=== PATIENT | male | born 1940 | race Caucasian/White ===

== ENCOUNTER 2022-09-11 09:02 | Outpatient (CLI) | payer MEDICARE, SELFPAY ==
[2022-09-11 14:16] LABS: SARS PCR* Negative SARS-CoV-2 (Negative)
== END 2022-09-11 09:03 | disposition home or self-care (01) ==
LOC: FBOREF 09:03
PROVIDERS: PCP Family Medicine; Visit Provider Orthopaedic Surgery
DX: Z20.822 Contact with and (suspected) exposure to COVID-19 (principal); Z01.818 Encounter for other preprocedural examination
CPT/HCPCS: 87635

== ENCOUNTER 2022-09-12 07:07 | Day surgery (SDC) | payer MEDICARE, SELFPAY ==
--- NOTE | 2022-08-29 09:50 | PC.NURSE ---
08/29/22. Spoke briefly with pt's , Sharon. Pt's H&P is today with Dr Hills at [facility]. His Covid test is on 09/11 at 9:00 AM -she believes at [facility]-she will confirm. States all of his PT is scheduled. States the discharge plan is to have him discharged to their home. She states they have friends who can help if needed.
[2022-09-12] VITALS (28 sets, daily range): BP systolic 75–148; BP diastolic 48–109; PULSE 53–102; RESP 12–18; TEMP 35.8–37.1; O2SAT 90–100; BMI 29.9
[2022-09-12] MEDS: CELECOXIB 200 MG CAPSULE PO (07:43)
[2022-09-12] MEDS: ACETAMINOPHEN 500 MG TABLET 1000 MG PO ×3 (07:43→21:59)
[2022-09-12] MEDS: OXYCODONE (CR) 10 MG TAB.ER.12H PO (07:43)
[2022-09-12] MEDS: SODIUM CHLORIDE 0.9 % (FLUSH) 10 ML SYRINGE IVF (07:58)
[2022-09-12] MEDS: LACTATED RINGERS 1000 ML 1,000 ML 100 ML IV (07:59)
--- NOTE | 2022-09-12 08:19 | SUR.PREOP ---
TIME?OUT:?08 PT/RN/MDA?VERIFICATION?OF?SURGICAL?SITE,?PROCEDURE,?AND?CONSENT OBTAINED?PRIOR?TO?INVASIVE?PROCEDURE.
[2022-09-12] MEDS: fentaNYL 100 MCG/2 ML inj IVP (08:25)
[2022-09-12] MEDS: MIDAZOLAM HCL 1 MG/ML inj IVP (08:25)
[2022-09-12] MEDS: CEFAZOLIN 2 GM INJ IVP (08:45)
--- NOTE | 2022-09-12 09:37 | W.PM.NB ---
Nerve Block Nerve Block Time Seen by Provider: 08:30 Date Seen: 09/12/22 Type of block requested by surgeon for post-operative analgesia: adductor canal Side: left Time out performed: Yes Verification of patient name: Yes Verification of date of : Yes Site marking: site marked Name of person performing procedure: Tarik Fink Continuous monitoring Was continuous monitoring of O2 sat, B/P, monitor and storage bin tender, recorded every 15 minutes?: Yes Procedure Checklist: sterile prep, needles and gloves Ultrasound guided. Images saved: Yes Medications given in 5ml increments after negative aspiration: Ropivicaine %: 0.5 mL: 20 Needle gauge: 20 Decadron (mg): 10 Precedex (mcg): 25 Patient tolerated procedure well: Yes Additional comments: injected in 5ml increments after negative aspiration Block Charges Block Charge (with Pro Fee): Femoral Nerve Use of Ultrasound Machine for Block: Yes- US Guidance/pain block
--- NOTE | 2022-09-12 09:38 | P.NB_ITS ---
Nerve Block Nerve Block Time Seen by Provider: 08:30 Date Seen: 09/12/22 Type of block requested by surgeon for post-operative analgesia: geniculars Side: left Time out performed: Yes Verification of patient name: Yes Verification of date of : Yes Site marking: site marked Name of person performing procedure: Tarik Fink Continuous monitoring Was continuous monitoring of O2 sat, B/P, director pharmacy services, recorded every 15 minutes?: Yes Procedure Checklist: sterile prep, needles and gloves Ultrasound guided. Images saved: No Medications given in 5ml increments after negative aspiration: Ropivicaine %: 0.5 mL: 12 Needle gauge: 25 Patient tolerated procedure well: Yes Additional comments: Injected in 4ml increments after negative aspiration Block Charges Block Charge (with Pro Fee): Genicular Nerve Block Use of Ultrasound Machine for Block: No
--- NOTE | 2022-09-12 09:53 | CRLHL7_ITS ---
For Patients: As a result of the Cures Act, medical imaging exams and procedure reports are released immediately into your electronic medical record. You may view this report before your referring provider. If you have questions, please contact your health care provider. Indication: POSTOP TKA Technique: Two views left knee Findings/Impression: Hardware from a left total knee arthroplasty is in satisfactory position. Bone alignment is normal. No sign of acute fracture. Postop changes are within normal limits. Dictated by Harjeet Walter MD @ 09/12/2022 11:16:21 AM (Electronically Signed)
--- NOTE | 2022-09-12 09:56 | PM.ORPRC ---
Procedure Note Date of procedure: 09/12/22 Procedure: PREOPERATIVE DIAGNOSIS: Left knee osteoarthritis POSTOPERATIVE DIAGNOSIS: Left knee osteoarthritis NAME OF OPERATION: Left total knee arthroplasty SURGEON: Harinder Manuel MD FABRICATION SPECIALIST: Olga Griggs PA-C ANESTHESIA: Spinal ESTIMATED BLOOD LOSS: 0 mL COMPLICATIONS: None SPECIMENS: None DRAINS: None PREOPERATIVE ANTIBIOTICS: Ancef 2 grams IMPLANTS: 1. J&J Attune #6 posterior stabilized femur 2. #6 fixed-bearing tibia 3. #6 posterior stabilized, 8 mm fixed-bearing polyethylene 4. 41 patella INDICATIONS: The patient is a 82-year-old with a longstanding history of severe, unrelenting left knee pain secondary to end-stage (grade IV) left knee osteoarthritis. Despite appropriate nonoperative management, including activity modification, anti-inflammatories, [id number] pain medication, bracing, physical therapy, and injections they continue to have pain and disability. Operative intervention was offered. The risks, benefits and expected outcomes were discussed in detail. These included but were not limited to: Infection, bleeding, injury to blood vessel or nerve, venous thromboembolism. All questions were answered to their satisfaction. Use of an retail assistant store manager was necessary throughout the case for patient positioning and safety, soft tissue retraction, and closure. PROCEDURE: Spinal anesthesia was administered. The patient was placed supine on the operating table. The retail assistant store manager made sure the patient was positioned appropriately. The lower extremity was prepped and draped in the usual sterile fashion. The limb was exsanguinated with the Kaveh bandage. The pneumatic tourniquet was inflated to 300 mmHg. A standard anterior incision was made with the knee in flexion. Subcutaneous dissection was sharply taken through fascial layer #1. Full-thickness medial and lateral flaps were elevated. The retail assistant store manager retracted the soft tissues and protected them throughout the case. A standard medial parapatellar approach was made. The patella was everted. The infrapatellar fat pad was preserved. The menisci and cruciate ligaments were sharply d?brided. Marginal osteophytes were d?brided with the rongeur. The drill was used to penetrate the femoral canal. The canal was aspirated and irrigated with pulse lavage. The intramedullary femoral guide was placed for a 5-degree valgus cut, removing 10 mm off the distal femur. The saw was used to make the cut. Whitesides line and the trans epicondylar axis were marked. The femoral sizing guide was pinned onto the distal femur. Three degrees of external rotation nicely parallels the transepicondylar axis. Pins were placed for posterior referencing. The four-in-one cutting guide was pinned onto the distal femur. The anterior, posterior, and chamfer cuts were made. The retail assistant store manager protected the collateral ligaments. The box cutting guide was pinned. The box cuts were made. The boxed trial was placed and was an excellent fit. Drill holes for the lugs were made. Attention was then turned to the proximal tibia. The extramedullary tibial guide was placed for a neutral varus/valgus cut with 5 degrees of posterior slope, removing 1 mm based off the medial tibial surface. The retail assistant store manager protected the collateral ligaments and the neurovascular bundle. The saw was used to make the cut. Trial components were placed. The knee was nicely balanced in both flexion and extension. The trial components were removed. The tray was placed in appropriate rotation, parallel to our tibial cutting pins. It was pinned by the retail assistant store manager and the drill and the punch were used. The tray was removed. The punch was used again. We placed a bone plug in the femoral canal. Attention was then turned to the patella. Morongo patellar thickness was 23 mm. The lobster claw resection guide was used with the 9.5 mm luanne. The saw was used to make the cut. Drill holes were made by the retail assistant store manager. The trial was placed and was an excellent fit. Cancellous surfaces were irrigated with pulse lavage and thoroughly dried by the retail assistant store manager. We cemented the tibial component, then the femoral component. We impacted the 8 mm polyethylene onto the tibial tray. The knee was brought into full extension. We then cemented the patellar component. Excessive cement was removed. The cement was allowed to harden. The knee was taken through a range of motion and was found to be nicely balanced in both flexion and extension. The patella tracks centrally. The retail assistant store manager did a three minute dilute Betadine solution soak. The retail assistant store manager irrigated the wound with 3 liters of normal saline via pulse lavage. The retail assistant store manager reapproximated the extensor mechanism with #1 Vicryl in an interrupted [id number] fashion. The retail assistant store manager then ran the extensor mechanism with a #1 PDO Stratafix. The retail assistant store manager closed the subcutaneous tissues with a 3-0 Stratafix and the skin with a running 3-0 Stratafix in a subcuticular fashion. Glue was used to seal the skin. The retail assistant store manager placed a dry dressing, SAMANTA stocking, and Polar Care. Sponge and needle counts were correct x2. The patient tolerated the procedure well. There were no apparent complications. They were carefully transferred to the hospital bed and taken to the postanesthesia care unit in satisfactory condition. PLAN: The patient will be mobilized with physical therapy. Aspirin will be used for DVT prophylaxis. They will be discharged to home once medically appropriate.
--- NOTE | 2022-09-12 10:47 | W.ANESCHARGE ---
Anesthesia Charges Start Date/Time Anesthesia Start Date: 09/12/22 Anesthesia Start Time: 08:36 Stop Date/Time Anesthesia Stop Date: 09/12/22 Anesthesia Stop Time: 10:45
--- NOTE | 2022-09-12 11:32 | SUR.PHASEI ---
patient met discharge criteria per anesthesia
[2022-09-12] MEDS: LACTATED RINGERS 1000 ML 1,000 ML 75 ML IV (12:29)
[2022-09-12] MEDS: CEFAZOLIN 2 GM in 0.9 % SODIUM CHLORIDE Mini-bag 100 ML IVPB ×2 (14:49→22:01)
[2022-09-12] MEDS: OXYCODONE 5 MG TABLET PO ×4 (14:49→21:59)
--- NOTE | 2022-09-12 18:22 | P.IMCN_ITS ---
Date of Consult Patient: Yancy Patient Consult date: 09/12/22 Requesting Physician: Orthopedics Primary Care Provider: Aftab Hills MD Consult Narrative Reason for consult: afib, DM2, HTN Narrative: Barber Duarte is a 82 year old male with a history of hypertension, diabetes mellitus type 2, and recently discovered atrial fibrillation who underwent elective left total knee arthroplasty today for severe osteoarthritis. Postoperatively he is doing well. He is having little bit of pain in his knee, but appears comfortable. Review of Systems Status of ROS: Reports: 6 or more systems reviewed and unremarkable except as noted in History and below [facility] Medical History (Updated 09/12/22 @ 19:07 by Jasmin Padron MD) Atrial fibrillation (07/20/22) B12 deficiency BPH (benign prostatic hyperplasia) GERD (gastroesophageal reflux disease) H/O echocardiogram Hyperlipidemia Hypertension Hypokalemia Normocytic anemia Obesity Right wrist pain Type 2 diabetes mellitus Surgical History (Updated 09/12/22 @ 18:57 by Jasmin Padron MD) H/O hemorrhoidectomy (~1979) History of appendectomy (~1951) History of back surgery (~1958) History of hernia repair (~1979) History of tonsillectomy and adenoidectomy (~1951) S/P cholecystectomy S/P total knee arthroplasty (09/12/22) Family History (Updated 09/12/22 @ 18:39 by Jasmin Padron MD) Sister Breast cancer Polio Mother Osteoarthritis Bleeding ulcer Father Parkinson disease Social History (Updated 09/12/22 @ 18:41 by Jasmin Padron MD) Narrative: 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 The 1st in 2011, he is rem arried and lives independently with her. He smoked less than a pack of cigarettes per day for 10 years and quit in his 30s. He drinks 1 bottle of beer per night, never really any more than that. Denies recreational drugs. Wishes to be DNR. Smoking Status: Former smoker What tobacco products do you use: cigarettes Smoking quit date/years: >15 years ago Do you use any of these nicotine containing products: None Second hand tobacco smoke exposure: No How often do you have a drink containing alcohol: 4 or more times a week Alcohol type: beer How many standard drinks containing alcohol do you have on a typical day: 1 or 2 How often do you have six or more drinks on one occasion: Never AUDIT-C Alcohol total score: 4 Non-prescribed substance use: denies use Caffeine: Yes (coffee, 2 cups/day) service: Yes Meds Home Medications and Allergies Home Medications Medication Instructions Recorded Confirmed Type ascorbic acid (vitamin C) 1,000 mg 1 g PO DAILY 02/22/22 09/12/22 History tablet atorvastatin 40 mg tablet 40 mg PO HS 02/22/22 09/12/22 History cholecalciferol (vitamin D3) 25 1,000 unit PO HS 02/22/22 09/12/22 History mcg (1,000 unit) tablet multivitamin 1 tab PO QAM 02/22/22 09/12/22 History omega 2-rea-blu-fish oil 100 1 cap PO DAILY 02/22/22 09/12/22 History mg-160 mg-1,000 mg capsule (Fish Oil) omeprazole 20 mg capsule,delayed 20 mg PO DAILY 02/22/22 09/12/22 History release amlodipine 5 mg tablet 5 mg PO DAILY 09/12/22 09/12/22 History cyanocobalamin (vitamin B-12) 1,000 mcg PO DAILY 09/12/22 09/12/22 History 1,000 mcg tablet hydrochlorothiazide 25 mg tablet 25 mg PO DAILY 09/12/22 09/12/22 History metformin 1,000 mg tablet 1,000 mg PO BIDWM 09/12/22 09/12/22 History metoprolol tartrate 25 mg tablet 25 mg PO BID 09/12/22 09/12/22 History oxycodone 5 mg tablet 5 mg PO BID PRN 09/12/22 09/12/22 History potassium chloride 10 mEq 10 meq PO DAILY 09/12/22 09/12/22 History tablet,extended release rivaroxaban 20 mg tablet (Xarelto) 20 mg PO QPM 09/12/22 09/12/22 History tamsulosin 0.4 mg capsule 0.8 mg PO DAILY 09/12/22 09/12/22 History Allergies Allergy/AdvReac Type Severity Reaction Status Date / Time lisinopril Allergy Verified 09/12/22 07:33 Exam Narrative: Exam Narrative: General: No acute distress. Awake alert oriented x3. HEENT: Normocephalic atraumatic, pupils equally round and reactive to light and accommodation. Oropharynx clear. Mucous membranes are moist. No cervical lymphadenopathy, thyromegaly or carotid bruits. No JVD. Cardiovascular: Irregularly irregular. No murmurs, gallops, or rubs. Chest: No increased work of breathing. Clear to auscultation bilaterally. No crackles or wheezes. Abdomen: Bowel sounds present. Soft, nondistended, nontender. No hepatosplenomegaly or masses. Extremities: Left knee bandage is clean, dry, and intact. No edema, no cyanosis or clubbing. Skin: No jaundice, no pallor, no rashes. Const: Vital Signs, click to edit/add: Vital Signs - 24 hr 09/12/22 07:46 09/12/22 08:25 09/12/22 08:30 Temperature 98.0 F Pulse Rate 64 64 62 Pulse Rate [Right Pulse Oximeter] Respiratory Rate 16 16 16 Blood Pressure 118/91 H 143/87 H 138/86 Blood Pressure [Le ft Arm] Pulse Oximetry 96 96 96 Oxygen Delivery Me thod Room Air Nasal Cannula Nasal Cannula Oxygen Flow Rate 2 2 09/12/22 10:42 09/12/22 11:20 09/12/22 10:45 Temperature 98.5 F 98.5 F 98.5 F Pulse Rate 56 L 64 55 L Pulse Rate [Right Pulse Oximeter] Respiratory Rate 12 15 12 Blood Pressure 85/48 L 108/63 75/57 L Blood Pressure [Le ft Arm] Pulse Oximetry 100 96 100 Oxygen Delivery Me thod OxyMask Room Air OxyMask Oxygen Flow Rate 6 6 09/12/22 10:50 09/12/22 10:55 09/12/22 11:00 Temperature 98.5 F 98.5 F 98.5 F Pulse Rate 63 54 L 54 L Pulse Rate [Right Pulse Oximeter] Respiratory Rate 13 14 14 Blood Pressure 87/58 L 96/55 L 97/52 L Blood Pressure [Le ft Arm] Pulse Oximetry 100 100 100 Oxygen Delivery Me thod OxyMask OxyMask OxyMask Oxygen Flow Rate 6 6 6 09/12/22 11:05 09/12/22 11:10 09/12/22 11:15 Temperature 98.5 F 98.5 F 98.5 F Pulse Rate 54 L 53 L 62 Pulse Rate [Right Pulse Oximeter] Respiratory Rate 14 16 15 Blood Pressure 97/52 L 101/57 L 108/60 Blood Pressure [Le ft Arm] Pulse Oximetry 100 100 96 Oxygen Delivery Me thod OxyMask OxyMask Room Air Oxygen Flow Rate 6 6 09/12/22 11:31 09/12/22 15:00 09/12/22 15:00 Temperature 96.6 F L Pulse Rate 58 L Pulse Rate [Right Pulse Oximeter] 98 Respiratory Rate 16 Blood Pressure Blood Pressure [Le ft Arm] 119/67 Pulse Oximetry 98 Oxygen Delivery Me thod Room Air Oxygen Flow Rate Documenting provider has reviewed patient's vital signs: yes Labs Labs: Ordering Physician: Harinder Manuel M.D. Date of Service: 09/12/22 Procedure(s): XR knee LT 2V Accession Number(s): [id number] cc: Aftab Hills M.D.; Harinder Manuel M.D.~ For Patients: As a result of the Cures Act, medical imaging exams and procedure reports are released immediately into your electronic medical record. You may view this report before your referring provider. If you have questions, please contact your health care provider. Indication: POSTOP TKA Technique: Two views left knee Findings/Impression: Hardware from a left total knee arthroplasty is in satisfactory position. Bone alignment is normal. No sign of acute fracture. Postop changes are within normal limits. Dictated by Harjeet Walter MD @ 09/12/2022 11:16:21 AM (Electronically Signed) Assessment and Plan Assessment and plan (1) S/P total knee arthroplasty: Problem comment: Left, Dr. Manuel Doing well. Routine cares. For VTE prophylaxis he will resume Xarelto tomorrow; he has this also for atrial fibrillation Status: Acute (2) Atrial fibrillation: Problem comment: Echo essentially normal as below. Takes metoprolol for rate control and rivaroxaban for anticoagulation. Rivaroxaban was held September 09. Resume tomorrow. Mildly tachycardic at 104 resting in chair this evening. Give evening dose of metoprolol now. Monitor telemetry. Status: Chronic (3) Normocytic anemia: Problem comment: Chronic 08/29/2022 hemoglobin 11.2 Status: Chronic (4) Type 2 diabetes mellitus: Problem comment: 08/02/22 hemoglobin A1c 5.9 %. Resume metformin. Will add an ISS with meals and at bedtime. Status: Acute (5) Hypertension: Problem comment: Continue metoprolol, hold amlodipine and hydrochlorothiazide for now. Status: Chronic (6) Hyperlipidemia: Problem comment: Continue atorvastatin Status: Chronic
[2022-09-12] MEDS: METOPROLOL TARTRATE 25 MG TABLET PO (19:51)
[2022-09-12] MEDS: ATORVASTATIN CALCIUM 40 MG TABLET PO (20:12)
[2022-09-12] MEDS: ASPIRIN 81 MG TABLET EC PO (20:12)
[2022-09-12] MEDS: SENNOSIDES 1 TAB TABLET 2 TAB PO (20:12)
[2022-09-13] MEDS: LACTATED RINGERS 1000 ML 1,000 ML 75 ML IV (02:56)
[2022-09-13 03:00] VITALS: BP 125/78; PULSE 70; RESP 16; TEMP 36.6; O2SAT 94
[2022-09-13] MEDS: ACETAMINOPHEN 500 MG TABLET 1000 MG PO ×2 (04:49→09:40)
[2022-09-13 06:38] LABS: Basophils Absolute Auto 0.01 K/uL (0.00-0.30); Basophils Percent Auto 0.1 % (0.0-3.0); Hematocrit 25.6 % (37.0-53.0); Hemoglobin* 8.8 gm/dL (13.5-17.5); Immature Granulocytes Abs Auto 0.02 K/uL (0.00-0.30); Immature Granulocytes Pct Auto 0.2 %; Lymphocytes Percent Auto 7.5 % (20-44); Mean Corpuscular HGB Conc 34 gm/dL (32-36); Mean Corpuscular Hemoglobin 34 pg (26-34); Mean Corpuscular Volume 99 fL (80-100); Monocytes Percent Auto 7.5 % (0.0-11.0); Neutrophils Percent Auto 84.7 % (42.0-72.0); Platelet Count* 298 K/uL (140-440); White Blood Count* 9.97 K/uL (4.50-11.00)
[2022-09-13 06:40] LABS: Slide Review Reflex No
[2022-09-13] MEDS: CEFAZOLIN 2 GM in 0.9 % SODIUM CHLORIDE Mini-bag 100 ML IVPB (06:53)
[2022-09-13 06:56] LABS: Potassium* 4.1 mmol/L (3.6-5.1); Sodium* 134 mmol/L (135-149)
[2022-09-13 06:59] LABS: Creatinine* 0.8 mg/dL (0.5-1.5); Est. Creatinine Clearance* 49.62; Estimated Glomerular Filt Rate 87 ml/min
[2022-09-13 07:00] VITALS: PULSE 63
[2022-09-13 07:00] LABS: Blood Urea Nitrogen* 23 mg/dL (7-30)
[2022-09-13 07:14] LABS: INR 1.32 (0.91-1.10); Prothrombin Time 17.2 Seconds
--- NOTE | 2022-09-13 07:18 | PC.NURSE ---
VSS on RA. Patient is alert and oriented x3, uses urinal at bedside. IV antibiotic infusing, IV fluid saline lock. Scheduled Tylenol for pain management. Patient appears stable, call light with in reach
[2022-09-13 07:30] VITALS: BP 119/69; PULSE 84; RESP 18; TEMP 36.8; O2SAT 96
[2022-09-13] MEDS: ASCORBIC ACID 500 MG TABLET 1000 MG PO (08:42)
[2022-09-13] MEDS: METFORMIN 1,000 MG TABLET 1000 MG PO (08:43)
[2022-09-13] MEDS: TAMSULOSIN HCL 0.4 MG CAPSULE 0.8 MG PO (08:44)
[2022-09-13] MEDS: CYANOCOBALAMIN (VITAMIN B-12) 500 MCG TABLET 1000 MCG PO (08:44)
[2022-09-13] MEDS: MULTIVITAMIN/MINERALS 1 TABLET 1 TAB PO (08:44)
[2022-09-13] MEDS: METOPROLOL TARTRATE 25 MG TABLET PO (08:45)
[2022-09-13] MEDS: OMEPRAZOLE 20 MG CAPSULE DR PO (08:45)
[2022-09-13] MEDS: SENNOSIDES 1 TAB TABLET 2 TAB PO (08:45)
[2022-09-13] MEDS: POTASSIUM CHLORIDE 10 MEQ CAPSULE ER PO (08:45)
[2022-09-13 09:35] VITALS: BP 108/63; PULSE 63; RESP 18; TEMP 36.8
--- NOTE | 2022-09-13 10:44 | PM.ORPN ---
Subjective Subjective Time Seen by Provider: 07:30 Date Seen: 09/13/22 Principal diagnosis: Status post left knee replacement Interval history: Barber is doing well this morning. He is comfortable. He denies dizziness or shortness of breath. He is planning to discharge to home today. Ortho Exam Narrative Exam Narrative: Alert and oriented x3. Patient is in no acute distress. Converses without labored breathing. Hearing is grossly intact. Ambulates with a walker. Examination of the left knee shows the dressing is in place. There is mild soft tissue edema. Mild effusion. Quad strength is good. Bilateral calves are soft and nontender. CMS intact left lower extremity. Const Vital Signs, click to edit/add: Vital Signs - 24 hr 09/12/22 11:20 09/12/22 10:45 09/12/22 10:50 Temperature 98.5 F 98.5 F 98.5 F Pulse Rate 64 55 L 63 Pulse Rate [Right Pulse Oximeter] Respiratory Rate 15 12 13 Blood Pressure 108/63 75/57 L 87/58 L Blood Pressure [Left Arm] Pulse Oximetry 96 100 100 Oxygen Delivery Method Room Air OxyMask OxyMask Oxygen Flow Rate 6 6 09/12/22 10:55 09/12/22 11:00 09/12/22 11:05 Temperature 98.5 F 98.5 F 98.5 F Pulse Rate 54 L 54 L 54 L Pulse Rate [Right Pulse Oximeter] Respiratory Rate 14 14 14 Blood Pressure 96/55 L 97/52 L 97/52 L Blood Pressure [Left Arm] Pulse Oximetry 100 100 100 Oxygen Delivery Method OxyMask OxyMask OxyMask Oxygen Flow Rate 6 6 6 09/12/22 11:10 09/12/22 11:15 09/12/22 11:31 Temperature 98.5 F 98.5 F 96.6 F L Pulse Rate 53 L 62 58 L Pulse Rate [Right Pulse Oximeter] Respiratory Rate 16 15 16 Blood Pressure 101/57 L 108/60 Blood Pressure [Left Arm] 119/67 Pulse Oximetry 100 96 Oxygen Delivery Method OxyMask Room Air Room Air Oxygen Flow Rate 6 09/12/22 15:00 09/12/22 15:00 09/12/22 11:45 Temperature 96.6 F L Pulse Rate Pulse Rate [Right Pulse Oximeter] 98 62 Respiratory Rate 16 Blood Pressure Blood Pressure [Left Arm] 127/109 H Pulse Oximetry 98 92 Oxygen Delivery Method Room Air Oxygen Flow Rate 09/12/22 12:00 09/12/22 12:15 09/12/22 12:30 Temperature 96.5 F L 96.8 F L 96.9 F L Pulse Rate Pulse Rate [Right Pulse Oximeter] 60 67 56 L Respiratory Rate 16 16 16 Blood Pressure Blood Pressure [Left Arm] 133/68 123/67 113/58 L Pulse Oximetry 92 95 93 Oxygen Delivery Method Room Air Room Air Room Air Oxygen Flow Rate 09/12/22 12:45 09/12/22 13:15 09/12/22 19:18 Temperature 96.9 F L 96.7 F L 98.7 F Pulse Rate Pulse Rate [Right Pulse Oximeter] 54 L 56 L 101 H Respiratory Rate 16 16 16 Blood Pressure Blood Pressure [Left Arm] 106/76 123/64 128/83 Pulse Oximetry 95 96 93 Oxygen Delivery Method Room Air Room Air Room Air Oxygen Flow Rate 09/12/22 14:00 09/12/22 15:00 09/12/22 16:00 Temperature 96.6 F L 96.6 F L 96.7 F L Pulse Rate Pulse Rate [Right Pulse Oximeter] 72 98 95 Respiratory Rate 16 16 16 Blood Pressure Blood Pressure [Left Arm] 124/75 146/86 H 145/93 H Pulse Oximetry 97 96 95 Oxygen Delivery Method Room Air Room Air Room Air Oxygen Flow Rate 09/12/22 17:00 09/12/22 21:07 09/12/22 21:59 Temperature 97.9 F 98.7 F Pulse Rate 94 Pulse Rate [Right Pulse Oximeter] 102 H Respiratory Rate 16 Blood Pressure Blood Pressure [Left Arm] 148/88 H Pulse Oximetry 98 Oxygen Delivery Method Room Air Oxygen Flow Rate 09/12/22 22:41 09/12/22 23:00 09/12/22 23:00 Temperature 98.7 F Pulse Rate Pulse Rate [Right Pulse Oximeter] 101 H Respiratory Rate 16 Blood Pressure Blood Pressure [Left Arm] Pulse Oximetry 95 Oxygen Delivery Method Oxygen Flow Rate 09/12/22 23:00 09/13/22 03:00 09/13/22 07:30 Temperature 98.2 F 97.8 F Pulse Rate Pulse Rate [Right Pulse Oximeter] 82 70 Respiratory Rate 18 16 Blood Pressure Blood Pressure [Left Arm] 142/78 H 125/78 Pulse Oximetry 95 94 96 Oxygen Delivery Method Room Air Room Air Oxygen Flow Rate 09/13/22 07:30 09/13/22 07:00 09/13/22 09:35 Temperature 98.3 F 98.3 F Pulse Rate 63 63 Pulse Rate [Right Pulse Oximeter] 84 Respiratory Rate 18 18 Blood Pressure 108/63 Blood Pressure [Left Arm] 119/69 Pulse Oximetry 96 Oxygen Delivery Method Room Air Oxygen Flow Rate Assessment and Plan Assessment and plan (1) S/P total knee arthroplasty: Problem details: 09/12/2022, left Status: Acute Assessment and Plan: Plan for discharge is today to home if they meet discharge criteria. DVT prophylaxis includes his normal dose of Xarelto 20 mg daily, Francisco stockings x1 month may remove for 1 hr per day, frequent ambulation Remove dressing in 1 week. Observe wound and phone Orthopedics with any questions or concerns Return to clinic in 1 week for a wound check Return to clinic in [address] Manuel Minimize narcotic use. Wean off and discontinue soon as possible. Activities as tolerated. No strenuous activity. Outpatient physical therapy as scheduled. Ice and elevate the operative extremity. No restriction on ice. Barber states he takes oxycodone rarely. It is on his med list. He takes it at night before bed only when he is having discomfort. Hemoglobin 8.8, asymptomatic currently. (2) Atrial fibrillation: Problem details: Echo essentially normal as below. Takes metoprolol for rate control and rivaroxaban for anticoagulation. Rivaroxaban was held September 09. Resume tomorrow. Mildly tachycardic at 104 resting in chair this evening. Give evening dose of metoprolol now. Monitor telemetry. Status: Chronic (3) Type 2 diabetes mellitus: Problem details: 08/02/22 hemoglobin A1c 5.9 %. Resume metformin. Will add an ISS with meals and at bedtime. Status: Acute (4) Hypertension: Problem details: Continue metoprolol, hold amlodipine and hydrochlorothiazide for now. Status: Chronic (5) Hyperlipidemia: Problem details: Continue atorvastatin Status: Chronic
[2022-09-13 10:45] VITALS: BP 113/80
--- NOTE | 2022-09-13 11:32 | PC.NURSE ---
Pt alert oriented, forgetful, reportedly per pt's baseline. Pt's vitals stable, on RA. Pt denies pain, voiding without difficulty, tolerating diet and ambulation. Worked w/ PT/OT, cleared for d/c by hospitalist. Discharge instructions gone over with pt and pt's , questions answered and paperwork sent with pt. IV removed intact without complications. Pt sent with all belongings and escorted out in WC to friend 'Carlyle' providing transportation home.
== END 2022-09-13 11:20 | disposition home or self-care (01) ==
LOC: OR 07:07 → MEDSURG 10:02
PROVIDERS: PCP Family Medicine; Visit Provider Orthopaedic Surgery
PROC: (CPT 27447; principal; 2022-09-12 08:45)
DX: M17.12 Unilateral primary osteoarthritis, left knee (principal); I48.91 Unspecified atrial fibrillation; E11.9 Type 2 diabetes mellitus without complications; I10 Essential (primary) hypertension; D64.9 Anemia, unspecified; E78.5 Hyperlipidemia, unspecified; K21.9 Gastro-esophageal reflux disease without esophagitis; E66.9 Obesity, unspecified; Z79.01 Long term (current) use of anticoagulants
CPT/HCPCS: 27447; 01402; 36415; 73560; 76942; 82565; 82962; 84132; 84295; 84520; 85025; 85610; 97110; 97116; 97161; 97165; 97535; A9153; A9270; C1776; J0690; J1100; J2250; J2704; J2795; J3010; J7120

== ENCOUNTER 2024-06-17 13:34 | Outpatient (CLI) | payer MEDICARE, SELFPAY | END 2024-06-17 13:35 | disposition home or self-care (01) | LOC: AMB 07-03 03:46 | PROVIDERS: PCP Family Medicine; Visit Provider Family Medicine | DX: R41.0 Disorientation, unspecified (principal); R53.1 Weakness | CPT/HCPCS: A0425; A0427 ==

== ENCOUNTER 2024-06-17 17:30 | Emergency (ER) | payer MEDICARE, SELFPAY ==
[2024-06-17] VITALS (14 sets, daily range): BP systolic 148–149; BP diastolic 77–83; PULSE 61–94; RESP 16; TEMP 36.6; O2SAT 91–98; BMI 29.1
--- NOTE | 2024-06-17 18:16 | CRLHL7_ITS ---
For Patients: As a result of the Century Cures Act, medical imaging exams and procedure reports are released immediately into your electronic medical record. You may view this report before your referring provider. If you have questions, please contact your health care provider. INDICATION: Slurred speech. TECHNIQUE: CT angiography of the head and neck following intravenous contrast. COMPARISON: None. FINDINGS: CTA neck: The innominate and subclavian arteries are widely patent. The common carotid arteries are widely patent. Mild (less than 50 percent) stenosis of the proximal cervical internal carotid arteries. The right vertebral artery is dominant. The vertebral arteries are widely patent. No concerning opacities in the visualized lungs. CTA head: The internal carotid, middle cerebral, and anterior cerebral arteries are widely patent. Atherosclerotic calcifications in the cavernous internal carotid arteries. The vertebral, basilar, and posterior cerebral arteries are widely patent. No intracranial aneurysm or high-flow vascular malformation. IMPRESSION: 1. No proximal large vessel occlusion. 2. Mild (less than 50 percent) stenosis of the proximal cervical internal carotid arteries. Please note that all CT scans at this facility use dose modulation, iterative reconstruction, and/or weight-based dosing when appropriate to reduce radiation dose to as low as reasonably achievable. Dictated by Jm Harris MD @ 06/17/2024 8:24:32 PM (Electronically Signed)
--- NOTE | 2024-06-17 18:16 | CRLHL7_ITS ---
For Patients: As a result of the Century Cures Act, medical imaging exams and procedure reports are released immediately into your electronic medical record. You may view this report before your referring provider. If you have questions, please contact your health care provider. INDICATION Slurred speech. TECHNIQUE: Noncontrast CT images of the brain. COMPARISON: None. FINDINGS: Fsmt-im-[id number] diffuse cerebral volume loss. No mass effect or midline shift. Medina-white differentiation is maintained. No acute intracranial hemorrhage or pathologic extra-axial fluid collection. Suggested jonz-gk-[id number] chronic microvascular ischemic changes. Intracranial atherosclerotic calcifications. Globes are symmetric. Calvarium is intact. Minimal ethmoid sinus mucosal thickening. Mastoid air cells are clear. IMPRESSION: No acute intracranial hemorrhage or mass effect. Please note that all CT scans at this facility use dose modulation, iterative reconstruction, and/or weight-based dosing when appropriate to reduce radiation dose to as low as reasonably achievable. Dictated by Jm Harris MD @ 06/17/2024 8:18:28 PM (Electronically Signed)
--- OUTSIDE RECORDS SUMMARY | 2024-06-17 18:24 | XMS_ITS | Encounter Summary ---
Author Organization [facility] Address [address] [place] [address] Care Team Providers Care Pill Packer Name Role Phone Unavailable Primary Care Provider Unavailabl e Encounter Details Date Type Department Care Team (Late st Contact Info) Description 03/14/2017 Historical Ophthalmology [facility] Keo Garcia M.D. 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 - 03/14/2017 2:03 PM CDT Eye General CHIEF COMPLAINT recheck Left eye HISTORY OF PRESENT ILLNESS Has been ssing Dr. 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 Was given Thera Tears and Thear Tears ointment to use, which has given him some relief. Was advised to see Dr. Garcia regarding possible surgical correction of Left upper eyelid IMPRESSION / REPORT / PLAN #1 Superficial/filamentary keratitis both eyes. Resolved with lubricant drops and ointment. Plan: COntinue ocular lubricants without change. F/u as scheduled. II DIAGNOSIS #1 Superficial/filamentary keratitis both eyes. Resolved with lubricant drops and ointment. CD Reports - EYEGEN Id: [id number] Status: Fnl documented in this encounter Plan of Treatment Not on file documented as of this encounter Visit Diagnoses Not on filedocumented in this encounter
--- OUTSIDE RECORDS SUMMARY | 2024-06-17 18:24 | XMS_ITS | Referral Summary ---
Author Organization [facility] Address [address] [place] [address] Care Team Providers Care Customer Specialist Name Role Phone Unavailable Primary Care Provider Unavailabl e Source Comments Patient records contain information from all sites at [facility]. For routine questions regarding patient records, call [phone] during business hours, M-F 8:00 AM - 5:00 PM Central Time. Record requests for emergency care only can be directed to [phone] at any time.[facility] Encounters Date Type Department Care Team Description 04/23/2024 12:52 PM CDT - 04/23/2024 11:59 PM CDT Hospital Encounter Department of Radiology in [address] [phone] Donald Vieyra P.A.-C. Primary Osteoarthritis Knee Right Discharge Disposition: Home or Self Care 04/23/2024 1:30 PM CDT Office Visit Department of Orthopedic Surgery in [address] [phone] Cj Viera M.D. 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 03/17/2024 Clinical Communication Department of Orthopedic Surgery in [place], [place] [address] [phone] Cj Viera M.D. Med Question from Last 3 Months Allergies Active Allergy Reactions Criticality Noted Date Comments Lisinopril Angioedema with othe r systemic symptoms especially skin reaction High 05/19/2021 Possible angioedema of upper lip Oxycodone Other (see comments) 03/21/2024 confusion Medications atorvastatin (LIPITOR) 40 mg tablet Take 1 tablet by mouth at bedtime. 7 Active blood sugar diagnostic (glucose blood) strips Dispense item covered by pt ins. 250.00 NIDDM type II - Test 2 times/day. Reason: High A1C 5 Active blood sugar diagnostic (glucose blood) strips Dispense item covered by pt ins. E11.9 NIDDM type II - Test 2 times/day. Reason: High A1C 8 Active blood-glucose meter kit Dispense meter, test strips, lancets covered by pt ins. E11.9 NIDDM type II - Test 2 times/day. Reason: High A1C 7 Active cholecalciferol (VITAMIN D3) 1,000 Unit capsule Take 1,000 Units by mouth. 7 Active cyanocobalamin (VITAMIN B12) 1,000 mcg tablet Take 1,000 mcg by mouth. 9 Active diclofenac sodium (VOLTAREN) 1 % gel Apply topically. 9 Active hydroCHLOROthia zide (HYDRODIURIL) 25 mg tablet Take 25 mg by mouth. 8 Active metFORMIN (GLUCOPHAGE) 1,000 mg tablet Take 1,000 mg by mouth. Patient takes twice daily 9 Active neomycin-polymy rene B-dexameth (MAXITROL) 3.5 mg/g-10,000 unit/g-0.1 % ophthalmic ointment Apply to left eye daily at bedtime 3.5 g 1 1 Active tamsulosin (Flomax) 0.4 mg 24 hr capsule TAKE 1 CAPSULE BY MOUTH ONCE DAILY AFTER A MEAL Active sennosides (senna) 8.6 mg tablet TAKE 2 TABLETS BY MOUTH TWICE A DAY NEEDED FOR CONSTIPATION Active Xarelto 20 mg tablet TAKE 1 TABLET BY MOUTH ONCE DAILY WITH EVENING MEAL 4 Active potassium chloride (Klor-Con M) 10 mEq ER tablet Take 1 tablet by mouth 2 (two) times a day with meals. 4 Active metoprolol tartrate (Lopressor) 25 mg tablet Take 1 tablet by mouth 2 (two) times a day. 4 Active magnesium oxide (Mag-Ox) 400 mg (241.3 mg magnesium) tablet Take 400 mg by mouth. 4 Active oxyCODONE (Roxicodone) 5 mg immediate release tablet oxycodone 5 mg tablet Active gabapentin (Neurontin) 100 mg capsule Take 1 capsule by mouth 2 (two) times a day. Active DOCOSAHEXAENOIC ACID ORAL Take 1 capsule by mouth daily. Active ascorbic acid, vitamin C, (Vitamin C) 1,000 mg tablet Take 1,000 mg by mouth daily. Active amLODIPine (Norvasc) 5 mg tablet Take 1 tablet by mouth daily. 4 Active acetaminophen (TylenoL) 500 mg tablet Take 1,000 mg by mouth every 6 (six) hours as needed. Active MULTIVITAMIN ORAL Take 1 tablet by mouth daily. Active blood sugar diagnostic strips (Innolight Ultra Test Strips) DISPENSE ITEM COVERED BY PT INS. E11.9 NIDDM TYPE II - TEST 2 TIMES/DAY. REASON: HIGH A1C Active cholecalciferol 10 mcg (400 unit) tablet Take 1 capsule by mouth daily. Unknown dose 4 Active omeprazole (PriLOSEC) [address] capsule Take 1 capsule by mouth 2 (two) times a day with meals. Active Stool Softener-Laxati ve 8.6-50 mg per tablet TAKE 1 TO 3 TABLETS BY MOUTH TWICE DAILY 4 Active Active Problems Problem Noted Date Diagnosed Date Arthroplasty Total Knee Replacement Status Post Left 02/25/2024 Overview (02/25/2024): Performed by Dr. 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 Diabetes Mellitus Type 2 06/22/2011 Overview (03/03/2024): Patient not sure of onset date Hyperlipidemia Mixed 06/17/2009 Resolved Problems Problem Noted Date Diagnosed Date Resolved Date Diabetes Mellitus NOS 02/25/20242023 Immunizations Name Administration Dates Next Due HZV (ZOSTAVAX) 08/23/2016 Influenza TIV (IM) 05/29/2017, 7,04/21/2012,2010 Influenza, Quadrivalent, Adj uvanted, Preservative Free 03/15/2023,04/21/2022,05/04/2021,2019 Influenza, Seasonal, Injectable 04/21/2012,05/06,06/06/2007 Influenza, Unspecified 05/23/2014,04/22/2013 PCV13 06/24/2014 PCV20 02/01/2023 PPSV23 07/29/2010 RZV (SHINGRIX) 06/26/2020,04/19/2020 Tdap 08/23/2016,07/27/2006 influenza trivalent high dos e (HD)(PF) 05/22/2019,04/17/2018,04/02/2016,2014,05/26/2015 influenza trivalent vaccine (6 months and older)(PF) 05/06/2011 Social History Tobacco Use Types Packs/Day Years Used Date Smoking Tobacco: Former Cigarettes Smokeless Tobacco: Former Tobacco Cessation:Counseling Given: Not Answered PHQ-2 Answer Date Recorded PHQ-2 Score 0 03/03/2024 Nutrition Answer Date Recorded Nutrition: EVOO Fat Source 13 02/16 Nutrition: Servings of Fruits/Vegetables per Day Not on file 02/17/2020 Dental Answer Date Recorded Dental: Regular Dentist Unknown 09/24/19 Sex and Gender Information Value Date Recorded Sex Assigned at Male 04/12/2021 8:51 AM CDT 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 Gender Identity Male 04/12/2021 8:51 AM CDT Sexual Orientation Not on file Last Filed Vital Signs Vital Sign Reading Time Taken Comments Blood Pressure 129/74 03/03/2024 1:01 PM CDT Pulse 58 03/03/2024 1:01 PM CDT Temperature 35.6 C (96.1 F) 03/03/2024 1:01 PM CDT Respiratory Rate 24 03/03/2024 1:01 PM CDT Oxygen Saturation 96% 03/03/2024 1:01 PM CDT Inhaled Oxygen Concentration - - Weight 85.1 kg (187 lb 9.8 oz) 03/03/2024 1:01 P M CDT Height 169 cm (5' 6.54) 03/03/2024 1:01 PM CDT Body Mass Index 29.8 03/03/2024 1:01 PM CDT Plan of Treatment Not on file Medical Devices Implanted Type Area Pilot Boat Operator Device Identifier Shelf Expiration Date Model / Serial / Lot Knee Implant-2023 Implanted: by Cj Viera M.D. (Quantity not on file) Knee Implant Right: Knee Margarita TRIATHLON / / Procedures Procedure Name Priority Date/Time Associated Diagnosis Comments DX KNEE RIGHT 3 VIEWS RAD - Routine (most inpatients and all outpatients) 04/23/2024 1:21 PM CDT Primary Osteoarthritis Knee Right HEMOGLOBIN A1C, B Routine 03/03/2024 1:4 8 PM CDT Diabetes Mellitus Type 2 (HCC) ELECTROLYTE (CHEM 4) PANEL, S/P Routine 03/04/2013 10:28 AM CDT from Last 3 Months or Most Recently Relevant to Health Maintenance Results * DX Knee Right 3 Views (04/23/2024 1:21 PM CDT) Anatomical Region Laterality Modality Lower Extremity, Knee, Muscu loskeletal RST LOS, Musculoskeletal ARZ LOS, Muskuloskeletal FLA LOS Right Digit al Radiography Impressions 04/23/2024 2:02 PM CDT Right TKA with patellar resurfacing. No evidence of hardware failure or loosening. No periprosthetic fracture. Moderate size knee joint effusion and/or synovitis. Vascular calcifications. Narrative 04/23/2024 2:02 PM CDT EXAM: DX KNEE RIGHT 3 VIEWS Procedure Note Valentin Tracy M.D. - 04/23/2024 EXAM: DX KNEE RIGHT 3 VIEWS IMPRESSION: Right TKA with patellar resurfacing. No evidence of hardware failure orloosening. No periprosthetic fracture. Moderate size knee joint effusionand/or synovitis. Vascular calcifications. us Donald Vieyra P.A.-C. IMG DIAGNOSTIC IMAGING P ROCEDURES Final Result * (ABNORMAL) Hemoglobin A1c (03/03/2024 1:48 PM CDT) Hemoglobin A1c, B 6.0(H) 4.2 - 5.6 % 03/03/2024 6:04 PM CDT [facility] Comment: Hemoglobin A1c values of 5.7-6.4 percent indicate an increased risk for developing diabetes mellitus. In diabetic patients, HbA1c goals should be discussed with healthcare provider. Blood (Blood, Venous) 03/03/2024 1:48 PM CDT 03/03/2024 5:39 PM CDT us Donald Vieyra P.A.-C. LAB BLOOD ADD-ON Final R esult [facility] [address] [place] [address], [facility] in [place] [address] [place] [phone] * (ABNORMAL) Electrolyte (Chem 4) Panel (03/04/2013 10:28 AM CDT) Potassium, P 4.2 3.6 - 5.2 MMOL/L [facility] HX Bicarbonate, P/S 23 22 - 29 MMOL/L [facility] Glucose, S 141(H) 70 - 140 MG/DL [facility] BUN (Blood Urea Nitrogen), S 26(H) 8 - 24 MG/DL [facility] Sodium, P 136 135 - 145 MMOL/L [facility] Chloride, S 102 100 - 108 MMOL/L [facility] Creatinine 1.0 0.8 - 1.3 MG/DL [facility] 03/04/2013 10:2 8 AM CDT 03/04/2013 10:28 AM CDT us Historical Provider LAB BLOOD ADD-ON Final Resul t [facility] [address] from Last 3 Months or Most Recently Relevant to Health Maintenance Insurance [facility]
--- OUTSIDE RECORDS SUMMARY | 2024-06-17 18:24 | XMS_ITS | Encounter Summary ---
Author Organization [facility] Address [address] [place] [address] Care Team Providers Care Technician Assistant Name Role Phone Unavailable Primary Care Provider Unavailabl e Reason for Visit * Reason Comments Arthroplasty Post-op Follow-up * Outpatient (Routine) - Closed Specialty Diagnoses / Procedures Referred By Deedee dos santos Referred To Contact Orthopedic Surgery Donald Vieyra P.A.-C. [address], [place] [address] Phone: tel: fax: Cj Viera M.D. [address] [place] [address] Phone: tel: fax: Referral ID Status Reason Start Date Expiration Date Visits Re quested Visits Authorized [id number] Closed 02/25/2024 08/26/2025 1 1 Encounter Details Date Type Department Care Team (Late st Contact Info) Description 04/23/2024 1:30 PM CDT Office Visit Department of Orthopedic Surgery in [address] [place] [address] Cj Viera M.D. 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 - 04/23/2024 1:30 PM CDT HPI: Barber returns to clinic 6 weeks out from a right total knee arthroplasty. He has been in physical therapy since surgery. He is doing well. His knee feels much better than prior to surgery. He does typically take a cane just for balance. PHYSICAL EXAM: Examination of his right knee reveals a well-healed surgical incision. No evidence for infection. He is neurovascular intact. Knee is ligamentously stable. Range of motion 0-125 degrees. IMAGING: X-rays taken today demonstrate well-seated components. No evidence for early complication. ASSESSMENT AND PLAN: Barber is 6 weeks out from a right total knee arthroplasty. He will continue physical therapy and advance activities based on pain. He will come back on an as-needed basis. 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
--- OUTSIDE RECORDS SUMMARY | 2024-06-17 18:24 | XMS_ITS | Encounter Summary ---
Author Organization [facility] Address [address] [place] [address] Care Team Providers Care Insurance Risk Surveyor Name Role Phone Unavailable Primary Care Provider Unavailabl e Reason for Visit * Reason Onset Date Comments Med Question 02/26/2024 Encounter Details Date Type Department Care Team (Late st Contact Info) Description 02/26/2024 Clinical Communication Department of Orthopedic Surgery in [place], [place] [address] [phone] Cj Viera M.D. 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 - 03/17/2024 12:59 PM CDT Called patient and , Sharon, and discussed [place] prescription. Sharon verbalized understanding this information. 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
--- OUTSIDE RECORDS SUMMARY | 2024-06-17 18:24 | XMS_ITS | Data Portability ---
Author Organization [facility], [facility] Address [address] [place] [address] Care Team Providers Care Hardboard Panel Printer Name Role Phone CONNELLYFADY BRAGA Primary Care Provider Assessment No assessment recorded. Plan of Treatment Reminders Order Date Submit Date Provider Last Modified By Organization Details Last Modified Time Details Appointments None record ed. Lab None record ed. Referral None record ed. Procedures None record ed. Surgeries None record ed. Imaging None record ed. Medication Orders None record ed. Patient TargetsNo targets recorded. Patient Instructions Encounter Date Encounter Id Patient Instructions Last Modified By Organization Details Last Modified Time 10/05/2022 [id number] Emily presents today with retention with indwelling ragland catheter in place - initially placed after knee surgery 08/2022 for unknown amount, failed several TOV, complicated by pseudomonas UTI treated with ciprofloxacin - etiology: BPH/LUTs, post-operative, UTI - tamsulosin 0.4mg: continue taking bid - failed TOV today, 0/150, catheter replaced today - will touch base with Dr Wright to discuss further steps Not available 10/05/2022 13:53:43 Reason for Referral None Reported. Problems Name Problem SNOMED Code Status Onset Date Resolution Date Notes Provider Name and Address Organization Details Recorded Time Retention of urine 403299879 Active [address] [facility] 3 16:28:30 Lower urinary tract symptoms due to benign prostatic hypertrophy 6523555980894 1 Active [address] [facility] 3 16:28:30 Urinary tract infectious disease 37092414 Active [address] [facility] 3 16:28:31 Benign paroxysmal positional vertigo 953785036 Active 2008 Rosalie Navarro null, [facility] 3 16:28:30 History of total knee arthroplast y 2655572761943 Active 2022 Rosaliegerald Navarro null, [facility] 3 16:28:30 Rotator cuff arthropathy of right shoulder 2034651878278 9106 [facility] 16:[facility] Rotator cuff arthropathy of left shoulder 8536191081424 9100 Active 2014 Rosaliegerald Navarro null, [facility] 3 16:28:30 Cobalamin deficiency 485920877 Active 2018 [facility] 16:28:30 Hypomagnese lucrecia 173731570 Active 2022 [facility] 16:28:30 Mixed hyperlipide lucrecia 454436796 Active 2008 Rosalie Navarro null, [facility] 3 16:28:30 Anemia 033967203 Active 2022 Rosalie Navarro null, [facility] 3 16:28:30 Obesity 239502619 [facility]30 Type 2 diabetes mellitus 49707303 Active 2010 Rosalie Navarro null, [facility] 3 16:28:30 Inflammatio n of joint of shoulder region 134395485 Active 2014 [facility] 3 16:28:30 Atrial fibrillatio n 95061787 Active 2021 Rosaliegerald Navarro null, [facility] 3 16:28:31 Essential hypertensio n 06422520 Active 2006 [facility] 3 16:28:31 Problem Notes None recorded. Procedures Surgical History Date Name Laterality Status Provider Name and Address Organization Details Recorded Time 3 Ragland Catheter Insertion completed Dinah Deal [facility] 10/05/2022 13:43:52 3 Past Data Reviewed completed RENÉE AMEZQUITA PAC [address] [place] [address],[facility] [address], [place], [address], [facility] 10/04/2022 17:12:51 3 Fill and Pull/Voiding Trial/TOV completed RENÉE AMEZQUITA PAC [address] [place] [address],[facility] [address], [place], [address], [facility] 10/05/2022 13:52:40 Imaging Results None recorded. Procedure Notes None recorded. Medical Equipment None Reported. Allergies Allergen ID Allergen Name Allergen Category Reaction Reaction Severity Criticality Documentation Date Start Date Code Code System Note Provider Name and Address Organization Details Recorded Time 960583 lisinopri l medicatio n other Not available Not available 01/11/20232020 78038 RxNorm Rosalie Ramon feng [facility] 3 16:28:46 Medications Name Sig Start Date Stop Date Status Note LastModified by Organization Details LastModified Time atorvastati n 40 mg tablet TAKE 1 TABLET BY MOUTH EVERY DAY active Not Available Not Available No t Available hydrocodone 5 mg-acetamin ophen 325 mg tablet active Not Available Not Available No t Available senna 8.6 mg tablet TAKE 2 TABLETS BY MOUTH TWICE A DAY NEEDED FOR CONSTIPAT ION active Not Available Not Available No t Available cyanocobala min (vit B-12) 1,000 mcg tablet TAKE 1 TABLET (1,000 MCG) BY MOUTH ONCE DAILY. active Not Available Not Available No t Available potassium chloride ER 10 mEq tablet,exte nded release TAKE 1 TABLET (10 MEQ) BY MOUTH ONCE DAILY WITH A MEAL. active Not Available Not Available No t Available amlodipine 5 mg tablet TAKE 1 TABLET BY MOUTH EVERY DAY active Not Available Not Available No t Available ciprofloxac in 500 mg tablet TAKE 1 TABLET BY MOUTH EVERY 12 HOURS FOR 7 DAYS 10/05 completed Not Available Not Available Not Available amoxicillin 875 mg tablet TAKE 1 TABLET (875 MG) BY MOUTH TWO TIMES DAILY FOR 7 DAYS. 10/05 completed Not Available Not Available Not Available magnesium oxide 400 mg (241.3 mg magnesium) tablet TAKE 1 TABLET BY MOUTH EVERY 12 HOURS FOR SEVERE HYPOMAGNE SEMIA active Not Available Not Available No t Available tamsulosin 0.4 mg capsule TAKE 2 CAPSULES (0.8 MG) BY MOUTH ONCE DAILY AFTER A MEAL. active Not Available Not Available No t Available Mapap (acetaminop hen) 500 mg capsule 500 - 1000 MG ORALLY EVERY 6 HOURS NEEDED FOR PAIN, MAX DAILY DOSE: 4000MG PER DAY active Not Available Not Available No t Available InsightpoolToShmoop Ultra Test strips DISPENSE ITEM COVERED BY PT INS. E11.9 NIDDM TYPE II - TEST 2 TIMES/DAY . REASON: HIGH A1C active Not Available Not Available No t Available metformin 1,000 mg tablet TAKE 1 TABLET (1,000 MG) BY MOUTH TWO TIMES DAILY WITH MEALS. active Not Available Not Available No t Available omeprazole 20 mg capsule,del ayed release TAKE 1 CAPSULE BY MOUTH TWICE A DAY TAKE BEFORE MEALS. active Not Available Not Available No t Available hydrochloro thiazide 25 mg tablet TAKE 1 TABLET BY MOUTH EVERY DAY active Not Available Not Available No t Available oxycodone 5 mg tablet TAKE 1 TABLET BY MOUTH TWICE DAILY NEEDED. active Not Available Not Available No t Available cholecalcif laura (vitamin D3) 25 mcg (1,000 unit) capsule TAKE 1 CAPSULE BY MOUTH EVERY DAY active Not Available Not Available No t Available metoprolol tartrate 25 mg tablet TAKE 1 TABLET BY MOUTH TWO TIMES DAILY. active Not Available Not Available No t Available Xarelto 20 mg tablet TAKE 1 TABLET BY MOUTH EVERY DAY WITH EVENING MEAL active Not Available Not Available No t Available Vitals Date Recorded Body height Body mass index (BMI) Body weight Provider Name and Address Organization Details Last Updated DateTime 10/05/2022 167.64 cm 29.2 kg/m2 79916.22 g Dinah Pepper [facility] 10/05/2022 11:57:14 Social History Question Answer Notes LastModified by Organizat ion Details LastModified Time Tobacco Smoking Status Former Smoker Dinah Pepper [facility], [facility] 10/05/2022 11:57:57 When Did You Quit Smoking? 14+yearssin umesh vazal24 Information not available 10/05/2022 What Was The Date Of Your Most Recent Tobacco Screening? 10/05/2022 Information not available 10/05/2022 Do You Use Any Illicit Or Recreational Drugs? No Information not available 10/05/2022 Has Tobacco Cessation Counseling Been Provided? No Information not available 10/05/2022 Do You Or Have You Ever Used Any Other Forms Of Tobacco Or Nicotine? No Information not available 10/05/2022 Sex: Unknown Functional Status None recorded. Mental Status None recorded. Family History Nothing Reported. Medical History Condition Response Other N High Blood Pressure Y Kidney Stones N Lung Disease N Depression N GERD/Acid Reflux N Sexually Transmitted Infection N Cancer N High Cholesterol Y Diabetes Y Bleeding Disorder N Heart Disease N Immunizations Vaccine Type Date Status Provider Name and Address Organization Details Recorded Time Influenza, adjuvanted, trivalent, PF 05/01/2017 completed Rosalie Navarro null, [facility] 01/11/2023 16:28:10 Influenza, adjuvanted, trivalent, PF 05/29/2017 completed Rosalie Navarro null, [facility] 01/11/2023 16:28:10 zoster recombinant 04/19/2020 completed Rosalie L arson null, [facility] 01/11/2023 16:28:10 zoster recombinant 06/26/2020 completed Rosalie L arson null, [facility] 01/11/2023 16:28:10 Influenza, adjuvanted, quadrivalent, PF 03/25/2020 completed Rosalie Navarro null, [facility] 01/11/2023 16:28:10 Influenza, adjuvanted, quadrivalent, PF 04/21/2022 completed Rosalie Navarro null, [facility] 01/11/2023 16:28:10 Influenza, adjuvanted, quadrivalent, PF 05/04/2021 completed Rosalie Navarro null, [facility] 01/11/2023 16:28:10 COVID-19, mRNA, LNP-S, PF, 30 mcg/0.3 mL dose 09/08/2020 completed Rosalie Navarro null, [facility] 01/11/2023 16:28:10 COVID-19, mRNA, LNP-S, PF, 30 mcg/0.3 mL dose 10/06/2020 completed Rosalie Navarro null, [facility] 01/11/2023 16:28:10 COVID-19, mRNA, LNP-S, PF, 30 mcg/0.3 mL dose 04/26/2021 completed Rosalie Navarro null, [facility] 01/11/2023 16:28:10 pneumococcal polysaccharide PPV23 07/29/2010 completed Rosalie Navarro null, [facility] 01/11/2023 16:28:10 influenza, unspecified formulation 04/02/2016 completed Rosalie Navarro null, [facility] 01/11/2023 16:28:10 influenza, unspecified formulation 04/22/2013 completed Rosalie Navarro null, [facility] 01/11/2023 16:28:10 influenza, unspecified formulation 05/23/2014 completed Rosalie Navarro null, [facility] 01/11/2023 16:28:10 Tdap 07/27/2006 completed Rosalie Navarro null, [facility] 01/11/2023 16:28:10 Tdap 08/23/2016 completed Rosalie Navarro null, [facility] 01/11/2023 16:28:10 Pneumococcal conjugate PCV 13 06/24/2014 completed Rosalie Navarro null, [facility] 01/11/2023 16:28:10 zoster live 08/23/2016 completed Rosalie Navarro null, [facility] 01/11/2023 16:28:10 Influenza, high-dose, trivalent, PF 04/17/2018 completed Rosalie Navarro null, [facility] 01/11/2023 16:28:10 Influenza, high-dose, trivalent, PF 05/22/2019 [facility] 01/11/2023 16:28:10 Influenza, high-dose, trivalent, PF 05/27/2015 completed Rosalie Navarro null, [facility] 01/11/2023 16:28:10 Influenza, split virus, trivalent, preservative 04/21/2012 completed Rosalie Navarro null, [facility] 01/11/2023 16:28:10 Influenza, split virus, trivalent, preservative 05/06/[address] [facility] 01/11/2023 16:28:10 Influenza, split virus, trivalent, preservative 05/06/2011 completed Rosalie feng, [facility] 01/11/2023 16:28:10 Influenza, split virus, trivalent, preservative 06/06/[address] [facility] 01/11/2023 16:28:10 Past Encounters Encounter ID Performer Location Encounter Start Date Encounter Closed Date Diagnosis/Indication Diagnosis SNOMED-CT Code Diagnosis ICD10 Code [id number] [address] [place] [address] 10/05/2022 11:53:34 10/05/2022 14:37:57 Retention of urine 187656168 R33.9 Lower urin marion tract symptoms due to benign prostatic hypertrophy 4581702295 9101 N40.1 Urinary tr act infectious disease 66588470 N39.0 Health Concerns Section Related Observation LastModified by Organization Detai ls LastModified Time None Recorded Concern Status LastModified by Organization Details LastModified Time None Recorded Advance Directives Directive None Recorded Payers Encounter Date Sequence Insurance Name Policy Number Policy Hidalgo Covered Member ID Hidalgo Member ID Guarantor Name 10/05/2022 1 ARE - INDIVIDUAL AND FAMILY (HMO) [id number] Emily Duarte [id number] Emily Duarte 10/05/2022 2 MEDICARE [place]: [employer] Emily Duarte [id number] Emily Duarte Notes Date Note Type Note Provider Name and Address Organization Details Recorded Time 10/05/2022 text/html emily presents for urinary retention s/p knee surgery 09/12/22 with post-op retention. failed several UTIs. Had pseudomonas UTI on 09/25/22 and treated with ciprofloxacin. 09/29 had catheter removed, could not void, so presented to [facility] ED on 09/30 for urinary retention. Catheter placed for 700cc. UA at the time was negative however was being treated with ciprofloxacin from 09/25 UTIHas been taking BID flomax Usually sees Dr Wright in [place] for hematuria, BPH. Cysto in 2020 demonstrated some modest prostate enlargement and trabeculations, but appears to be emptying well. RENÉE AMEZQUITA, PAC [address], [place], [address], [facility] 10/05/2022 13:54:08
--- OUTSIDE RECORDS SUMMARY | 2024-06-17 18:24 | XMS_ITS | Encounter Summary ---
Author Organization [facility] Address [address] [place] [address] Care Team Providers Care Documentation Supervisor Name Role Phone Unavailable Primary Care Provider Unavailabl e Encounter Details Date Type Department Care Team (Late st Contact Info) Description 05/19/2015 Historical Ophthalmology [facility] Robert Han Jr., M.D. 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 - 05/19/2015 2:17 PM CDT Eye General CHIEF COMPLAINT Decreased VA OS- Work Comp [place] O HISTORY OF PRESENT ILLNESS Pt states for the past 3-4 months he has noticed a decrease in VA in the left eye when reading at near. Often finds himself closing the left. Increase of flashes. Notices them every night. Floaters are gone. 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
--- OUTSIDE RECORDS SUMMARY | 2024-06-17 18:24 | XMS_ITS ---
Author Organization [facility] Address [address] [place] [address] Care Team Providers Care Hide Worker Name Role Phone Unavailable Unavailable Unavailable Surgery Details Not on file Complications Check Surgery Details section. Procedure Estimated Blood Loss Check Surgery Details section. Procedure Findings Check Surgery Details section. Procedure Specimens Taken Check Surgery Details section.
--- OUTSIDE RECORDS SUMMARY | 2024-06-17 18:24 | XMS_ITS | Encounter Summary ---
Author Organization [facility] Address [address] [place] [address] Care Team Providers Care Surgeon/President Name Role Phone Unavailable Primary Care Provider Unavailabl e Encounter Details Date Type Department Care Team (Late st Contact Info) Description 03/09/2017 Historical Ophthalmology [facility] Robert Han Jr., M.D. 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 - 03/09/2017 2:28 PM CDT Eye General CHIEF COMPLAINT Recheck Keratitis Left Eye HISTORY OF PRESENT ILLNESS Pt states that he is using the tears and ointment at bedtime. (Unknown name of what he is using, Whatever the Dr told me to get) States he has slight improvement but still has a FBS to the outside part of the eye. 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 F/U with Dr. Garcia for possible surgical repair - bleph +/- ptosis repair Historical #1 Cataract nuclear both eyes. #2 Dermatochalasis both upper lids. Not bothering patient. Plan: Update glasses. U/v protection. 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 #2 Dermatochalasis both upper lids. Not bothering patient. CDM Reports - EYEGEN Id: [id number] Status: Fnl documented in this encounter Plan of Treatment Not on file documented as of this encounter Visit Diagnoses Not on filedocumented in this encounter
--- OUTSIDE RECORDS SUMMARY | 2024-06-17 18:24 | XMS_ITS | Encounter Summary ---
Author Organization [facility] Address [address] [place] [address] Care Team Providers Care Civil Engineering Specialist Name Role Phone Unavailable Primary Care Provider Unavailabl e Reason for Referral * Outpatient (Routine) - Closed Specialty Diagnoses / Procedures Referred By Contac t Referred To Contact Diagnoses Pain Knee Right Procedures DX Knee Right 2 View Cj Viera M.D. [address] [place] [address] Phone: tel: fax: [facility] Region Referral ID Status Reason Start Date Expiration Date Visits Re quested Visits Authorized [id number] Closed 03/13/2024 03/13/2025 1 1 Reason for Visit * Outpatient (Routine) - Closed Specialty Diagnoses / Procedures Referred By Contac t Referred To Contact Diagnoses Pain Knee Right Procedures DX Knee Right 2 View Cj Viera M.D. [address] [place] [address] Phone: tel: [facility] Region Referral ID Status Reason Start Date Expiration Date Visits Re quested Visits Authorized [id number] Closed 03/13/2024 03/13/2025 1 1 Encounter Details Date Type Department Care Team (Latest Contact Info) Description 03/13/2024 6:54 AM CDT - 03/13/2024 11:59 PM CDT Hospital Encounter Department of Radiology in [place], [place] [address] [place] [address] Cj Viera M.D. 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 amLODIPine (Norvasc) 5 mg tablet Take 1 tablet by mouth daily. 02/07/2024 ascorbic acid, vitamin C, (Vitamin C) 1,000 mg tablet Take 1,000 mg by mouth daily. atorvastatin (LIPITOR) 40 mg tablet Take 1 tablet by mouth at bedtime. 08/30/2016 blood sugar diagnostic (glucose blood) strips Dispense item covered by pt ins. 250.00 NIDDM type II - Test 2 times/day. Reason: High A1C 03/03/2015 blood sugar diagnostic (glucose blood) strips Dispense item covered by pt ins. E11.9 NIDDM type II - Test 2 times/day. Reason: High A1C 08/22/2017 blood sugar diagnostic strips (OneTouch Ultra Test Strips) DISPENSE ITEM COVERED BY PT INS. E11.9 NIDDM TYPE II - TEST 2 TIMES/DAY. REASON: HIGH A1C blood-glucose meter kit Dispense meter, test strips, lancets covered by pt ins. E11.9 NIDDM type II - Test 2 times/day. Reason: High A1C 07/11/2017 cholecalciferol (VITAMIN D3) 1,000 Unit capsule Take 1,000 Units by mouth. 08/16/2016 cholecalciferol 10 mcg (400 unit) tablet Take 1 capsule by mouth daily. Unknown dose 12/22/2023 cyanocobalamin (VITAMIN B12) 1,000 mcg tablet Take 1,000 mcg by mouth. 11/22/2018 diclofenac sodium (VOLTAREN) 1 % gel Apply topically. 09/12/2018 DOCOSAHEXAENOIC ACID ORAL Take 1 capsule by mouth daily. gabapentin (Neurontin) 100 mg capsule Take 1 capsule by mouth 2 (two) times a day. hydroCHLOROthiaz joselyn (HYDRODIURIL) 25 mg tablet Take 25 mg by mouth. 04/19/2018 magnesium oxide (Mag-Ox) 400 mg (241.3 mg magnesium) tablet Take 400 mg by mouth. 02/07/2024 metFORMIN (GLUCOPHAGE) 1,000 mg tablet Take 1,000 mg by mouth. Patient takes twice daily 11/20/2018 metoprolol tartrate (Lopressor) 25 mg tablet Take 1 tablet by mouth 2 (two) times a day. 08/09/2023 MULTIVITAMIN ORAL Take 1 tablet by mouth daily. neomycin-polymyx in B-dexameth (MAXITROL) 3.5 mg/g-10,000 unit/g-0.1 % ophthalmic ointment Apply to left eye daily at bedtime 3.5 g 1 04/18/2021 omeprazole (PriLOSEC) [address] capsule Take 1 capsule by mouth 2 (two) times a day with meals. oxyCODONE (Roxicodone) 5 mg immediate release tablet oxycodone 5 mg tablet potassium chloride (Klor-Con M) 10 mEq ER tablet Take 1 tablet by mouth 2 (two) times a day with meals. 08/09/2023 sennosides (senna) 8.6 mg tablet TAKE 2 TABLETS BY MOUTH TWICE A DAY NEEDED FOR CONSTIPATION tamsulosin (Flomax) 0.4 mg 24 hr capsule TAKE 1 CAPSULE BY MOUTH ONCE DAILY AFTER A MEAL Xarelto 20 mg tablet TAKE 1 TABLET BY MOUTH ONCE DAILY WITH EVENING MEAL 02/07/2024 HYDROcodone-acet aminophen ([place]) 5-325 mg per tabletIndication s:Prolonged Acute Pain/Traumatic Injury Take 1 tablet by mouth every 4 (four) hours as needed for pain or severe pain or score 7-10 of 10 for up to 7 days Indication: Prolonged Acute Pain/Traumatic Injury. 42 tablet 03/17/2024 4 HYDROcodone-acet aminophen ([place]) 5-325 mg per tablet 4 documented as of this encounter Plan of Treatment Not on file documented as of this encounter Procedures Procedure Name Priority Date/Time Associated Diagnosis Comments DX KNEE RIGHT 2 VIEW RAD - Routine (most inpatients and all outpatients) 03/13/2024 10:55 AM CDT Pain Knee Right documented in this encounter Results * DX Knee Right 2 View (03/13/2024 10:55 AM CDT) Anatomical Region Laterality Modality Knee, Lower Extremity, Muscu loskeletal RST LOS, Musculoskeletal ARZ LOS, Muskuloskeletal FLA LOS Right Digit al Radiography Impressions 03/13/2024 11:01 AM CDT Comparison 02/25/2024. New right total knee arthroplasty in near-anatomic alignment. No periprosthetic fracture. Expected small right knee joint effusion with soft tissue gas and swelling. Narrative 03/13/2024 11:01 AM CDT EXAM: DX KNEE RIGHT 2 VIEW Procedure Note Victorino Weathers M.D. - 03/13/2024 EXAM: DX KNEE RIGHT 2 VIEW IMPRESSION: Comparison 02/25/2024. New right total knee arthroplasty in near-anatomic alignment. Noperiprosthetic fracture. Expected small right knee joint effusion withsoft tissue gas and swelling. Cj Viera M.D. [facility] [place] [facility] Final Result documented in this encounter Visit Diagnoses Diagnosis Pain Knee Right documented in this encounter
--- OUTSIDE RECORDS SUMMARY | 2024-06-17 18:24 | XMS_ITS | Encounter Summary ---
Author Organization [facility] Address [address] [place] [address] Care Team Providers Care Head Animal Keeper Name Role Phone Unavailable Primary Care Provider Unavailabl e Reason for Visit * Reason Onset Date Comments Med Question 03/17/2024 Encounter Details Date Type Department Care Team (Late st Contact Info) Description 03/17/2024 Clinical Communication Department of Orthopedic Surgery in [place], [place] [address] [phone] Cj Viera M.D. 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 - 03/17/2024 2:56 PM CDT Please see Clinical Communication dated 02/26/2024 for documentation. This concern has been taken care of. documented in this encounter Plan of Treatment Not on file documented as of this encounter Visit Diagnoses Not on filedocumented in this encounter
--- OUTSIDE RECORDS SUMMARY | 2024-06-17 18:24 | XMS_ITS | Clinical Summary ---
Author Organization [facility] Address [address] [place] [address] Care Team Providers Care Grounds And Nursery Specialist Name Role Phone Unavailable Primary Care Provider Unavailabl e Source Comments Patient records contain information from all sites at [facility]. For routine questions regarding patient records, call [phone] during business hours, M-F 8:00 AM - 5:00 PM Central Time. Record requests for emergency care only can be directed to [phone] at any time.[facility] Allergies Active Allergy Reactions Criticality Noted Date [...] mouth daily. Active blood sugar diagnostic strips (Ingo MoneyTouch Ultra Test Strips) DISPENSE ITEM COVERED BY [...] Date Resolved Date Diabetes Mellitus NOS 02/25/20242023 Encounters Date Type Department Care Team Description 04/23/2024 1:30 PM CDT Office Visit Department of Orthopedic Surgery in [address] [phone] Cj Viera M.D. 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 Primary Osteoarthritis Knee Right Discharge Disposition: Home or Self Care 03/26/2024 1:30 PM CDT Office Visit Department of Orthopedic Surgery in [address] [phone] Cj Viera M.D. 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 03/17/2024 Clinical Communication Department of Orthopedic Surgery in [place], [place] [address] [phone] Cj Viera M.D. 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 Gender Identity Male 04/12/2021 8:51 AM CDT [...] 03/03/2024 1:01 PM CDT Plan of Treatment Health Maintenance Due Date Last Done Comments Diabetic Office Visit with Foot Exam 1940 Urine Albumin 1940 Hepatitis B Vaccines (1 of 3 - Risk 3-dose series) 1998 RSV vaccine - (32-36 weeks) or 60+ years (1 - 1-dose 75+ series) 2013 COVID-19 Vaccine ( season) 2024 06/20/2022, 04/26/2021, 10/06/2020, Additional history exists Influenza Vaccine (#1) 2024 , 04/21/2022, 05/04/2021, Additional history exists Hemoglobin A1C 09/03/2024 03/03/2024, 01/20, 08/07/2023, Additional history exists Dilated Eye Exam 11/01/2024 11/02/2023, 09/2022, 01/04/2021, Additional history exists Creatinine Level (Kidney Function Test) 03/14/2025 03/14/2024, 02/04/2024, 08/07/2023, Additional history exists Potassium Level 03/14/2025 03/14/2024, 01/20, 08/07/2023, Additional history exists Sodium Level 03/14/2025 03/14/2024, 01/20, 08/07/2023, Additional history exists DTaP,Tdap,and Td Vaccines (3 - Td or Tdap) 08/23/2026 08/23/2016, 07/27/2006 Zoster Vaccines Completed 06/26/2020, 03/24, 08/23/2016 Pneumococcal vaccine (65+ years) Completed 02/01/2023, 06/24/2014, 07/29/2010 Depression Screening (Annual PHQ-2) Completed 03/03/2024, 03/03/2024 Fall Risk Screen (Annual) Completed 03/03/2024 IPV Vaccines Aged Out No longer eligi ble based on patient's age to complete this topic Medical Devices Implanted Type Area Java Tech Device Identifier Shelf Expiration Date Model / [...] size knee joint effusionand/or synovitis. Vascular calcifications. Donald Vieyra P.A.-C. IMG DIAGNOSTIC IMAGING P ROCEDURES Final Result * (ABNORMAL) Hemoglobin A1c (03/03/2024 1:48 PM CDT) Hemoglobin A1c, B 6.0(H) 4.2 - 5.6 % 03/03/2024 6:04 PM CDT OW Comment: Hemoglobin A1c values of 5.7-6.4 percent indicate an increased risk for developing diabetes mellitus. In diabetic patients, HbA1c goals should be discussed with healthcare provider. Blood (Blood, Venous) 03/03/2024 1:48 PM CDT 03/03/2024 5:39 PM CDT Donald Vieyra P.A.-C. LAB BLOOD ADD-ON Final R esult Performing Organization Address City/State/[facility] Co de Phone Number [facility] [address] [place] [phone], [facility] OWAT [facility] [place] [address] [place] [phone] * (ABNORMAL) Electrolyte (Chem 4) Panel (03/04/2013 10:28 AM CDT) Potassium, P 4.2 3.6 - 5.2 MMOL/L [facility] HX Bicarbonate, P/S 23 22 - 29 MMOL/L [facility] Glucose, S 141(H) 70 - 140 MG/DL [facility] BUN (Blood Urea Nitrogen), S 26(H) 8 - 24 MG/DL [facility] Sodium, P 136 135 - 145 MMOL/L [facility] Chloride, S 102 100 - 108 MMOL/L [facility] Creatinine 1.0 0.8 - 1.3 MG/DL [facility] 03/04/2013 10:2 8 AM CDT 03/04/2013 10:28 AM CDT us Historical Provider LAB BLOOD ADD-ON Final Resul t [facility] [address] [place], [place] [address] from Last 3 Months or Most Recently Relevant to Health Maintenance Insurance [facility]
--- OUTSIDE RECORDS SUMMARY | 2024-06-17 18:24 | XMS_ITS | Clinical Summary ---
Author Organization [facility] Address [place], [place] [address] Care Team Providers Care Food Assembler Name Role Phone Aftab Hills MD Primary Care Provider Allergies Active Allergy Reactions Criticality Noted Date Comments Lisinopril Angioedema High 05/19/2021 Possible angioedema of upper lip Oxycodone Other - Describe In Comment Field 03/21/2024 confusion Medications Medication Sig Dispensed Refills Start Date End Date Status omega 9-oda-ihm-fish oil (Fish Oil) 100-160-1,000 mg cap Take 1 Capsule by mouth once daily. Active MULTIVITAMIN ORAL Take 1 Tablet by mouth once daily. Active ascorbic acid, vitamin C, (VITAMIN C) 1,000 mg tablet Take 1,000 mg by mouth once daily. Active acetaminophen (TYLENOL EXTRA STRGTH) 500 mg tablet Take 1,000 mg by mouth every 6 hours if needed. Max acetaminophen dose: 4000mg in 24 hrs. Active cyanocobalamin (VITAMIN B12) 1,000 mcg tabletIndications:B 12 deficiency Take 1 Tablet (1,000 mcg) by mouth once daily. 90 Tablet 3 08/09/2023 Active metoprolol tartrate (LOPRESSOR) 25 mg tabletIndications:A trial fibrillation, unspecified type (HC) Take 1 Tablet (25 mg) by mouth two times daily. 180 Tablet 3 08/09/2023 Active cholecalciferol (Vitamin D) 1,000 unit capsuleIndications: Vitamin D insufficiency Take 1 capsule by mouth once daily 90 Capsule 1 12/22/2023 Active magnesium oxide (MAG-OX 400) 400 mg tabletIndications:H ypomagnesemia Take 1 Tablet (400 mg) by mouth two times daily. 180 Tablet 3 02/07/2024 Active amLODIPine (NORVASC) 5 mg tabletIndications:B enign essential HTN Take 1 Tablet (5 mg) by mouth once daily. 90 Tablet 3 02/07/2024 Active atorvastatin (LIPITOR) 40 mg tabletIndications:E ssential hypertension Take 1 Tablet (40 mg) by mouth once daily. 90 Tablet 3 02/07/2024 Active hydroCHLOROthiazide 25 mg tabletIndications:H ypertension, unspecified type Take 1 Tablet (25 mg) by mouth once daily. 90 Tablet 3 02/07/2024 Active metFORMIN (GLUCOPHAGE) 1,000 mg tabletIndications:D iabetes mellitus without complication (HC) Take 1 Tablet (1,000 mg) by mouth two times daily with meals. 180 Tablet 1 02/07/2024 Active omeprazole 20 mg tabletIndications:C hronic GERD Take 1 Tablet (20 mg) by mouth two times daily with meals. 180 Tablet 3 02/07/2024 Active rivaroxaban (XARELTO) 20 mg tabletIndications:A trial fibrillation, unspecified type (HC) Take 1 Tablet (20 mg) by mouth once daily with evening meal. 90 Tablet 3 02/07/2024 Active gabapentin (NEURONTIN) 100 mg capsule Take 1 Capsule by mouth two times daily. Active WalkerIndications:P rimary osteoarthritis of right knee Walker with front wheels for home use. 1 Each 03/14/2024 Active potassium chloride (Klor-Con 10) 10 mEq extended-release tabletIndications:B enign essential HTN Take 1 Tablet (10 mEq) by mouth two times daily with meals. 180 Tablet 3 05/15/2024 Active tamsulosin (Flomax) 0.4 mg capsuleIndications: Incomplete bladder emptying Take 2 Capsules (0.8 mg) by mouth once daily after a meal. 180 Capsule 1 05/15/2024 Active triamcinolone (ARISTOCORT; KENALOG) 0.1 % creamIndications:Ve nous stasis dermatitis Apply topically to affected area(s) two times daily. As needed, not to exceed 14 days without interruption per episode. 45 g 05/16/2024 Active Active Problems Problem Noted Date Diagnosed Date Status post right knee replacement 03/13/2403/21 Primary osteoarthritis of right knee 03/12/2024 Urinary retention 09/14/2022 Hypomagnesemia 09/14/2022 Status post total left knee replacement 09/14/22 09/14/2022 Atrial fibrillation 07/06/2022 B12 deficiency 11/22/2018 Rotator cuff tear arthropathy of right shoulder 03/23/2017 Left rotator cuff tear arthropathy 07/02/2015 Glenohumeral arthritis 09/25/2014 Type II diabetes mellitus with complication 08/2010 Obesity, unspecified 06/23/2011 Mixed hyperlipidemia 06/18/2009 Benign paroxysmal positional vertigo 01/26/2009 Unspecified essential hypertension 07/05/2007 Resolved Problems Problem Noted Date Diagnosed Date Resolved Date Urinary retention 09/17/2022 10/04/2022 Left knee pain 09/14/2022 10/04/2022 Postoperative anemia 09/14/2022 023 Atrial fibrillation with rap id ventricular response 09/14/2022 10/04/2022 CKD (chronic kidney disease) stage 3, GFR 30-59 ml/min 11/19/2017 08/07/2022 BPH without urinary obstruction 11/19/2017 10/04/2022 Left irritable rotator cuff tear 09/25/2014 11/19/2017 Left shoulder pain 09/03/2014 8 Prediabetes 01/29/2009 05/27/2013 Skin lesion 01/26/2009 11/19/2017 Encounters Date Type Department Care Team Description 05/15/2024 4:35 PM CDT Office Visit [facility] [address] [place] [address] Aftab Hills MD Leg Swelling (Bilateral lower leg swelling, started about 2 weeks ago); Medication Management 05/15/2024 Telephone [facility] [address] [place] [address] Aftab Hills MD requesting the steroid cream for patient 05/15/2024 Travel 03/21/2024 11:20 AM CDT Office Visit [facility] [address] [place] [address] Aftab Hills MD Hospital F/U ([facility], 03/13/2024 - 03/14/2024, right knee replacement) 03/21/2024 Travel 03/17/2024 Patient Outreach [facility] [address] [place] [address] Darya Forbes, RN Primary RN Care Management ([facility] Hospital F/U from Last 3 Months Immunizations Name Administration Dates Next Due COVID-19 vaccine ([employer] 30mcg/0.3mL) PF, MDV 04/26/2021,10/06/2020,09/08/2020 Influenza Virus, Unspecified 04/02/2016,05/23/20 14,04/22/2013 Influenza, High-dose Inactivated 05/22/2019,03/24,05/27/2015 Influenza, IIV3 (Age >=3 years) 04/21/20 12,05/06/2011,05/06/2010,2006 Influenza, Inactivated AIIV4 (Age 65+ Years) Preserv Free 03/15/2023,04/21/2022,05/04/2021,2019 Influenza, Inactivated IIV3 (Age 65+ Years) Preserv Free 05/29/2017,05/01/2017 Pneumococcal Conj 20-valent (Prevnar 20) 02/01/2023 Pneumococcal Poly,23-Valent (Pneumovax) 07/29/2010 Pneumococcal conj 13-Valent (Prevnar 13) 06/24/2014 Tdap 08/23/2016,07/27/2006 Zoster (Shingrix-RZV, recombinant) 06/26/2020, Zoster (Zostavax-ZVL, live) 08/23/2016 Family History Medical History Relation Name Comments Other Father Guadalupe's Arthritis Mother GI Disease Mother Bleeding Ulcer Heart Disease Neg. 1 Cancer-colon Neg. 2 Cancer-prostate Neg. 3 Diabetes Neg. 4 Anesthesia Problem No Family History Relation Name Status Comments Father (Age 93) Mother (Age 86) Neg. 1 Neg. 2 Neg. 3 Neg. 4 Social History Tobacco Use Types Packs/Day Years Used Date Smoking Tobacco: Former Cigarettes 1 15 Passive Smoke Exposure: Past Smokeless Tobacco: Never Tobacco Cessation:Counseling Given: No Comments:Quit 50+ ago Alcohol Use Standard Drinks/Week Comments Yes 7 (1 standard drink = 0.6 oz pur e alcohol) one beer per day. PHQ-2 Answer Date Recorded PHQ-2 TOTAL SCORE 0 02/07/2024 Social Connections Answer Date Recorded Frequency of Communication with Friends and Fami ly 0 07/14/2022 Financial Resource Strain Answer Date R ecorded Difficulty of Paying Living Expenses 3 07/14/2022 Difficulty of Paying Living Expenses Not on file 07/14/2022 Food Insecurity Answer Date Recorded Worried About Running Out of Food in the Last Ye ar 1 07/14/2022 Transportation Needs Answer Date Record ed Lack of Transportation (Medical) 1 07/14/2022 Housing Stability Answer Date Recorded Unable to Pay for Housing in the Last Year 1 07/14/2022 Sex and Gender Information Value Date Recorded Sex Assigned at Not on file Gender Identity Not on file Sexual Orientation Not on file Obstetrics History Last Filed Vital Signs Vital Sign Reading Time Taken Comments Blood Pressure 156/73 05/15/2024 4:30 PM CDT Pulse 89 05/15/2024 4:30 PM CDT Temperature 37.3 C (99.1 F) 03/14/2024 7:35 AM CDT Respiratory Rate 18 03/14/2024 7:35 AM CDT Oxygen Saturation 97% 05/15/2024 4:30 PM CDT Inhaled Oxygen Concentration - - Weight 86.8 kg (191 lb 6.4 oz) 05/15/2024 4:30 P M CDT Height 167.6 cm (5' 6) 02/07/2024 10:45 AM CDT Body Mass Index 30.89 02/07/2024 10:45 AM CDT Plan of Treatment Upcoming Encounters Date Type Department Care Team (Late st Contact Info) Description 08/11/2024 10:15 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 Orders Only [facility] [address] [place] [address] [place], [place] 08/11/2024 10:55 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 Office Visit [facility] [address] [place] [address] Aftab Hills MD [address] [place] [address] 11/27/2024 11:15 AM CDT Office Visit [address] [place] [phone] Meka Wright MD [address] [facility] [place] [address] Health Maintenance Due Date Last Done Comments RSV vaccine for adults or (1 - 1-dose 75+ series) 2013 COVID-19 vaccine series ( season) 2024 06/20/2022, 04/26/2021, 10/06/2020, Additional history exists Influenza for age 65+ 03/23/2024 03/15/2023 , 04/21/2022, 05/04/2021, Additional history exists BMI (ht and wt on same day) for age 18+ 02/06/2025 02/07/2024, 02/01/2023, 08/29/2022, Additional history exists Depression screening for age 12+ 02/06/2025 02/07/2024, 02/01/2023, 01/30/2022, Additional history exists Medicare Wellness for age 65+ 02/07/2025, 02/01/2023, 01/30/2022, Additional history exists Tetanus booster 08/23/2026 08/23/2016, 07/27/2006 Tdap Completed 08/23/2016, 07/27/2006 Zoster (shingles) series for age 50+ Completed 06/26/2020, 04/19/2020, 08/23/2016 Pneumococcal series for age 65+ Completed 02/01/2023, 06/24/2014, 07/29/2010 Medical Devices Implanted Type Area Deckhand Sponge Boat Device Identifier Shelf Expiration Date Model / Serial / Lot Patella [id number] Triathlon Tritanium Symmetrical Metal Backed - [id number] Implanted:Qty: 1 on 03/13/2024 by Cj Viera MD at [facility] Right: Knee [employer] 12/09/2028 [id number] / / [id number] Insert Tib Sz 6 9mm Knee X3 Condylar Stabilizing Triathlon - [id number] Implanted:Qty: 1 on 03/13/2024 by Cj Viera MD at [facility] Right: Knee [employer] 06/18/2028 [id number] -[id number] / / [id number] Fem Rt 5 Triathlon Beaded W/Pa - [id number] Implanted:Qty: 1 on 03/13/2024 by Cj Viera MD at [facility] Right: Knee [employer] 02/05/2029 [id number] / / [id number] Baseplate Tib Univ Sz 6 Triathlon Keeled Ingrowth Pors Tritan - [id number] Implanted:Qty: 1 on 03/13/2024 by Cj Viera MD at [facility] Right: Knee [employer] 12/04/2028 5536-[id number]-600 / / [id number] Explanted Type Area Deckhand Sponge Boat Device Identifier Shelf Expiration Date Model / Serial / Lot Pin Bone Fix [id number] - [id number] Explanted:Qty: 1 on 03/13/2024 by Cj Viera MD at [facility] Right: Knee [place] [employer] 12/26/2028 [id number] / / [id number] Pin Bone Fix [id number] Strl - [id number] Explanted:Qty: 1 on 03/13/2024 by Cj Viera MD at [facility] Right: Knee [employer] 12/26/2028 [id number] / / [id number] Advance Directives Documents on File Type Date Recorded Patient Blood Typer Expl anation Healthcare Directive 07/31/2016 10:15 AM PRIYANKA, 07/19/2016 * Full Code (Latest Code Status on File) Date Activated Date Inactivated Comments 03/13/2024 6:07 AM 03/14/2024 4:33 PM Question Answer Comments Code Status Discussion: Not Discussed * DNR Date Activated Date Inactivated Comments 09/14/2022 6:34 AM 09/20/2022 3:12 PM Question Answer Comments Code Status Discussion: Reviewed Preferences Care Teams Food Assembler Relationship Specialty Start Date End Date Aftab Hills MD [address] [place] [address] PCP - General Family Practice 05/17/11
--- OUTSIDE RECORDS SUMMARY | 2024-06-17 18:24 | XMS_ITS | Encounter Summary ---
Author Organization [facility] Address [address] [place] [address] Care Team Providers Care Lumber Marker Name Role Phone Unavailable Primary Care Provider Unavailabl e Reason for Visit * Reason Comments Arthroplasty Follow-up Post-op * Outpatient (Routine) - Closed Specialty Diagnoses / Procedures Referred By Deedee dos santos Referred To Contact Orthopedic Surgery Donald Vieyra P.A.-C. [address] [phone] Phone: tel: fax: [facility] Region Referral ID Status Reason Start Date Expiration Date Visits Re quested Visits Authorized [id number] Closed 02/25/2024 08/26/2025 1 1 Encounter Details Date Type Department Care Team (Late st Contact Info) Description 03/26/2024 1:30 PM CDT Office Visit Department of Orthopedic Surgery in [place] [address] [facility] [place] [phone] Cj Viera M.D. 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 - 03/26/2024 1:30 PM CDT PRIMARY CARE PROVIDER No primary care provider on file. CHIEF COMPLAINT/REASON FOR VISIT Two-week postop recheck of a right robotically assisted total knee arthroplasty performed by Dr. Viera on 03/13/2024. SUBJECTIVE HISTORY OF PRESENT ILLNESS Barber Duarte is a very pleasant male who presents today for 2 week postop recheck of a right total knee arthroplasty performed by Dr. Viera on date listed above. The patient reports that he is doing well. He has had moderate pain following surgery. He has actually seen an improvement in his pain since switching from [place] to just Tylenol. he is in physical therapy 2 to 3 times per week without any complications. Motion is progressing appropriately, with some difficulty achieving extensiongoals. He denies any issues with his Aquacel dressing. He has had no significant drainage. He denies any fever, chills, night sweats, nausea, or vomiting. OBJECTIVE PHYSICAL EXAMINATION MUSCULOSKELETAL: Examination of the right knee reveals the incision to be clean, dry, and intact without signs of infection following dressing removal. Neurovascularly intact distally. Capillary refill less than 2 seconds. Demonstrates range of motion of 10 to 115 degrees. 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 Viera on date listed above. PLAN: Barber Duarte is doing well. At this point he will continue with therapy. We will plan on seeing him back in clinic in approximately 1 month for his recheck with Dr. Viera. We did discuss today that he can continue to shower. He should continue to monitor the incision for signs of infection. We did review those findings including drainage, redness, increased warmth, and sudden increasein pain. Wean off of pain medications as able. He will notify us of any concerns prior to his 6 week recheck appointment. All questions were answered to patient's satisfaction. 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
--- OUTSIDE RECORDS SUMMARY | 2024-06-17 18:24 | XMS_ITS | Encounter Summary ---
Author Organization [facility] Address [address] [place] [address] Care Team Providers Care Coagulant Dipper Name Role Phone Unavailable Primary Care Provider Unavailabl e Reason for Referral * Outpatient (Routine) - Closed Specialty Diagnoses / Procedures Referred By Deedee dos santos Referred To Contact Diagnoses Primary Osteoarthritis Knee Right Procedures DX Knee Right 3 Views Donald Vieyra P.A.-C. [address], [place] [address] Phone: tel: fax: [facility] Region Referral ID Status Reason Start Date Expiration Date Visits Re quested Visits Authorized [id number] Closed 02/25/2024 02/24/2025 1 1 Reason for Visit * Outpatient (Routine) - Closed Specialty Diagnoses / Procedures Referred By Deedee dos santos Referred To Contact Diagnoses Primary Osteoarthritis Knee Right Procedures DX Knee Right 3 Views Donald Vieyra P.Marika-Austyn [address] [place] [address] Phone: tel: fax: [facility] Region Referral ID Status Reason Start Date Expiration Date Visits Re quested Visits Authorized [id number] Closed 02/25/2024 02/24/2025 1 1 Encounter Details Date Type Department Care Team (Latest Contact Info) Description 04/23/2024 12:52 PM CDT - 04/23/2024 11:59 PM CDT Hospital Encounter Department of Radiology in [address] [place] [address] Donald Vieyra P.A.-C. 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 Gender Identity Male 04/12/2021 8:51 AM CDT [...] MOUTH TWICE A DAY NEEDED FOR CONSTIPATION Stool Softener-Laxativ e 8.6-50 mg per tablet TAKE 1 TO 3 TABLETS BY MOUTH TWICE DAILY 03/14/2024 tamsulosin (Flomax) 0.4 mg 24 hr capsule TAKE 1 CAPSULE BY MOUTH ONCE DAILY AFTER A MEAL Xarelto 20 mg tablet TAKE 1 TABLET BY MOUTH ONCE DAILY WITH EVENING MEAL 02/07/2024 documented as of this encounter Plan of Treatment Not on file documented as of this encounter Procedures Procedure Name Priority Date/Time Associated Diagnosis Comments DX KNEE RIGHT 3 VIEWS RAD - Routine (most inpatients and all outpatients) 04/23/2024 1:21 PM CDT Primary Osteoarthritis Knee Right documented in this encounter Results * DX Knee Right 3 Views [...] IMG DIAGNOSTIC IMAGING P ROCEDURES Final Result documented in this encounter Visit Diagnoses Diagnosis Primary Osteoarthritis Knee Right documented in this encounter
--- OUTSIDE RECORDS SUMMARY | 2024-06-17 18:24 | XMS_ITS | Encounter Summary ---
Author Organization [facility] Address [address] [place] [address] Care Team Providers Care Floor Sweeper Name Role Phone Unavailable Primary Care Provider Unavailabl e Encounter Details Date Type Department Care Team (Late st Contact Info) Description 03/19/2024 Clinical Communication Department of Orthopedic Surgery in [place], [place] [address] [phone] Cj Viera M.D. [address] [phone] Social History Tobacco Use Types Packs/Day Years [...] AM CDT Legal Sex Male 9:22 AM [employer] Gender Identity Male 04/12/2021 8:51 AM CDT Sexual Orientation Not on file documented as of this encounter Miscellaneous Notes * Telephone Encounter - Mary Ann Johansen R.N. - 03/19/2024 1:23 PM CDT Called Sharon and informed her Donald Vieyra P.A.-C. sent a prescription for Vistaril to the [facility] in [place]. Sharon verbalized understanding this information. * Telephone Encounter - Mary Ann Johansen R.N. - 03/19/2024 12:52 PM CDT Called patient and , Sharon, and discussed pain control after right total knee arthroplasty performed by Dr. Viera on 03/13. Sharon states patient had physical therapy on Sunday and Sunday thisweek and is having increased pain in his knee. Patient has been using the [place] and supplementing Tylenol to get close to 3000 mg. Patient has been using ice consistently also. Patient had to change from Oxycodone to [place] because he was getting confused with the Oxycodone. Discussed adding Vistaril to help the [place]. Patient and Sharon agree to this. 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
--- OUTSIDE RECORDS SUMMARY | 2024-06-17 18:24 | XMS_ITS | Continuity of Care Document ---
Author Organization [facility] Address [address] [place] [address] Phone Care Team Providers Care Injection Machine Operator Name Role Phone Maia GODOY, PhD, Grabiel Unavailable Unavai lable Allergies, Adverse Reactions, Alerts Substance Reaction Status Criticality No Known Allergies Active No Inform ation Medications Medication Instructions Dosage Effective Dates (start - stop) Status Comments AMLODIPINE BESYLATE (unknown strength) Not Available - Active LIPITOR (unknown strength) Not Available - Active VITAMIN D3 (unknown strength) Not Available - Active CIPRO (unknown strength) Not Available - A ctive VITAMIN B-12 (unknown strength) Not Available - Active HYDROCHLOROTHIAZIDE (unknown strength) Not Available - Active METFORMIN HCL (unknown strength) Not Available - Active METHYLPREDNISOLONE (unknown strength) Not Available - Active PRILOSEC (unknown strength) Not Available - Active OXYCODONE HCL (unknown strength) Not Available - Active FLOMAX (unknown strength) Not Available - Active LISINOPRIL (unknown strength) Not Available - No Longer Active Procedures Procedure Date Office/Outpatient Visit,Est, Mod 2021 Office/Outpatient Visit,Est, Mod 2020 Office/Outpatient Visit,New, Mod 2020 Advance Directives Directive Yes / No Effective Date File Name No Information Encounters Encounter Description Practice Location Reason(s) For Visit Diagnoses Date Provider Providers Copied on Encounter Office/Outpat ient Visit,Est, Mod [facility], [address], [place], [place], [id number], [place] tel:[phone] [facility] Spinal stenosis, lumbar region with neurogenic claudication Maia Spain. [facility], [address], [place], [address], [place]. tel:[phone] Referring Provider: Cj Sherman, [facility] [address] [facility], [place], [address]. tel:[phone] Office/Outpat ient Visit,Est, Mod [facility], [address], [place], [place], [id number], [place] tel:[phone] [facility] Spinal stenosis, lumbar region with neurogenic claudication Maia Spain. [facility], [address], [place], [address], [place]. tel:[phone] Referring Provider: Cj Sherman, [facility], [place], [address]. tel:[phone] Office/Outpat ient Visit,New, Mod [facility], [address], [place], [place], [id number], [place] tel:[phone] [facility] Spinal stenosis, lumbar region with neurogenic claudication Maia Spain. [facility], [address], [place], [address], [place]. tel:[phone] Referring Provider: Cj Sherman, [facility] [address] [facility], [place], [address]. tel:[phone] [facility], [address], [place], [place], [id number], [place] tel:[phone] [facility] Low back pain Maia Spain. [facility], [address], [place], [address], [place]. tel:[phone] Family History Family Member Type Diagnosis Age At Onset No Information Payers Payer name Insurance type Covered alliance party ID Matt [email or web address](s) [employer] Medicare 2021 CI [id number] Social History Type Description Quantity Date Captured Comments Alcohol Use Details Unknown Akhil-04-2022 Caffeine Use Details Unknown Tobacco Use Status No Information Smoking Status Former smoker Non-Smoking Tobacco Use Details : No Details Available : No Details Available Sex Male Vital Signs Date / Time: Height Weight BMI Pulse Rate Blood Pressure Temperature Respiratory Rate Body Surface Area Head Circumference Head Circ. Percentile Wt./Kana. Percentile BMI percentile Pulse Ox Inhaled Ox 2:03 PM 67.00 in 82.554 kg (182.00 lbs) 28.5 1 kg/m nachoer (2) Chief Complaint And Reason For Visit No Information Reason For Referral Reason For Referral No Information History Of Present Illness Encounter Date Complaint History Of Prese nt Illness No Information Functional Status Date Functional Assessmen t No Information Instructions Date Instruction Additional Infor mation No Information Assessments Type Assessment Date No Information Patient Care Teams Name Effective Dates (start - stop) Status Members No Information
--- OUTSIDE RECORDS SUMMARY | 2024-06-17 18:24 | XMS_ITS | Encounter Summary ---
Author Organization [facility] Address [address] [place] [address] Care Team Providers Care Vehicle Calibration Engineer Name Role Phone Unavailable Primary Care Provider Unavailabl e Encounter Details Date Type Department Care Team (Late st Contact Info) Description 05/04/2014 Historical Ophthalmology [facility] Robert Han Jr., M.D. 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 - 05/04/2014 10:52 AM CDT Eye General CHIEF COMPLAINT 6 month F/U HISTORY OF PRESENT ILLNESS Pt states that his left eye at night continues to have flashes when looking to the right. Floater is less noticable. VA is stable. IMPRESSION / REPORT / PLAN A) PVD VF, stable P) RTO 1 year; RD precautions; no disability rating from eye as vision is 20/20 and periphery intact. CD Reports - [facility] Id: [id number] Status: Fnl documented in this encounter Plan of Treatment Not on file documented as of this encounter Visit Diagnoses Not on filedocumented in this encounter
--- OUTSIDE RECORDS SUMMARY | 2024-06-17 18:24 | XMS_ITS | Encounter Summary ---
Author Organization [facility] Address [address] [place] [address] Care Team Providers Care Director Of Program Management Name Role Phone Unavailable Primary Care Provider Unavailabl e Encounter Details Date Type Department Care Team (Late st Contact Info) Description 02/27/2017 Historical Ophthalmology [facility] Robert Han Jr., M.D. 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 - 02/27/2017 1:46 PM CDT Eye General CHIEF COMPLAINT FBS Left Eye HISTORY OF PRESENT ILLNESS Pt states that when he was here February 12 when the tech checked his pressure in the left eye, he felt that she pressed very hard and could feel it. Has never felt anything before when he had his pressure checked. Since then he has had a FBS in the left eye that comes and goes. Worse February 21 and went to [facility] and was told nothing was in his eye. Last night eye felt very sharp and uncomfortable again, but does not it feels better today. Has been using OTC tears to help relieve the discomfort. Pts stated she tried to get in last week with [facility] and the soa architect told her that, There was no chance in getting him in. I told Sharon that she could always request to speak with a tech in the future, if she has problems getting in. IMPRESSION / REPORT / PLAN Today #1 One small filament/filamentary keratitis OS Tears /4 and tear ointment, rto 1 week HistoricalL #1 Cataract nuclear both eyes. #2 Dermatochalasis both upper lids. Not bothering patient. Plan: Update glasses. U/v protection. 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 #2 Dermatochalasis both upper lids. Not bothering patient. [id number] Status: Fnl documented in this encounter Plan of Treatment Not on file documented as of this encounter Visit Diagnoses Not on filedocumented in this encounter
--- NOTE | 2024-06-17 18:38 | ED_ITS ---
HPI - General Adult General Chief complaint: Altered Mental Status Stated complaint: Weakness, confusion Time Seen by Provider: 06/17/24 17:51 Source: patient and family Mode of arrival: ambulatory Limitations: no limitations History of Present Illness HPI narrative: 84-year-old male, history of hypertension, hyperlipidemia, AFib on anticoagulation, type 2 diabetes presents today with acute confusion. Patient's family states that approximately 3 hours ago he was sitting in his kitchen table and decided he was to go into the garage but could not get out the door. He stood up and had trouble getting through the door and going down the steps. When asked what was wrong he stated that he felt dizzy. When I ask him what he meant he states that he Dank feel right. He denies the room rotating around him. He denies feeling nauseated. There is no vomiting. Family that sent him back down at the kitchen table and noticed that his speech became slightly slurred. Unclear how long this lasted but it seems that this has now resolved. He was complaining of headache during this time. He denies any recent illness, no chest pain or shortness of breath. No fevers or chills. No changes in his appetite. No diarrhea. No difficulty with urination. No skin rashes. Related Data Home Medications ?Medication ?Instructions ?Recorded ?Confirmed ascorbic acid (vitamin C) 1,000 mg 1 g PO DAILY 02/22/22 09/12/22 tablet atorvastatin 40 mg tablet 40 mg PO 02/22/22 09/12/22 cholecalciferol (vitamin D3) 25 1,000 unit PO HS 02/22/22 09/12/22 mcg (1,000 unit) tablet multivitamin 1 tab PO [facility] 02/22/22 09/12/22 omega 0-erm-jkd-fish oil 100 1 cap PO DAILY 02/22/22 09/12/22 mg-160 mg-1,000 mg capsule (Fish Oil) omeprazole 20 mg capsule,delayed 20 mg PO DAILY 02/22/22 09/12/22 release amlodipine 5 mg tablet 5 mg PO DAILY 09/12/22 09/12/22 cyanocobalamin (vitamin B-12) 1,000 mcg PO DAILY 09/12/22 09/12/22 1,000 mcg tablet hydrochlorothiazide 25 mg tablet 25 mg PO DAILY 09/12/22 09/12/22 metformin 1,000 mg tablet 1,000 mg PO BIDWM 09/12/22 09/12/22 metoprolol tartrate 25 mg tablet 25 mg PO BID 09/12/22 09/12/22 potassium chloride 10 mEq 10 meq PO DAILY 09/12/22 09/12/22 tablet,extended release rivaroxaban 20 mg tablet (Xarelto) 20 mg PO QPM 09/12/22 09/12/22 tamsulosin 0.4 mg capsule 0.8 mg PO DAILY 09/12/22 09/12/22 Previous Rx's ?Medication ?Instructions ?Recorded acetaminophen 500 mg capsule 500 - 1,000 mg (1 - 2 x 500 mg) PO 09/12/22 Q6H PRN pain #100 caps sennosides 8.6 mg tablet (Senna 17.2 mg (2 x 8.6 mg) PO BID PRN 09/12/22 Lax) constipation #100 tabs oxycodone 5 mg tablet 2.5 - 5 mg (0.5 - 1 x 5 mg) PO 09/13/22 Q4-6H PRN Pain #42 tabs Allergies Allergy/AdvReac Type Severity Reaction Status Date / Time lisinopril Allergy Verified 09/12/22 07:[address] [facility] Medical History (Updated 06/17/24 @ 20:49 by Medina Miller MD) Right wrist pain ?M25.531 - Pain in right wrist (ICD-10) Obesity ?E66.9 - Obesity, unspecified (ICD-10) B12 deficiency ?E53.8 - Deficiency of other specified B group vitamins (ICD-10) Hypokalemia ?E87.6 - Hypokalemia (ICD-10) Normocytic anemia ?D64.9 - Anemia, unspecified (ICD-10) BPH (benign prostatic hyperplasia) ?N40.0 - Benign prostatic hyperplasia without lower urinary tract symptoms (ICD-10) H/O echocardiogram ?Z92.89 - Personal history of other medical treatment (ICD-10) Atrial fibrillation (07/20/22) ?I48.91 - Unspecified atrial fibrillation (ICD-10) Type 2 diabetes mellitus ?E11.9 - Type 2 diabetes mellitus without complications (ICD-10) GERD (gastroesophageal reflux disease) ?K21.9 - Gastro-esophageal reflux disease without esophagitis (ICD-10) Hypertension ?I10 - Essential (primary) hypertension (ICD-10) Hyperlipidemia ?E78.5 - Hyperlipidemia, unspecified (ICD-10) Surgical History (Updated 09/19/22 @ 15:36 by Haily Hale) 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) ?Z96.652 - Presence of left artificial knee joint (ICD-10) S/P cholecystectomy ?Z90.49 - Acquired absence of other specified parts of digestive tract (ICD- 10) H/O hemorrhoidectomy (~1979) ?Z98.890 - Other specified postprocedural states (ICD-10) History of back surgery (~1958) ?Z98.890 - Other specified postprocedural states (ICD-10) History of tonsillectomy and adenoidectomy (~1951) ?Z90.89 - Acquired absence of other organs (ICD-10) History of hernia repair (~1979) ?Z98.890 - Other specified postprocedural states (ICD-10) ?Z87.19 - Personal history of other diseases of the digestive system (ICD-10) History of appendectomy (~1951) ?Z90.49 - Acquired absence of other specified parts of digestive tract (ICD- 10) Family History (Updated 09/12/22 @ 18:39 by Jasmin Padron MD) Sister Breast cancer Polio Mother Osteoarthritis Bleeding ulcer Father Parkinson disease Social History (Updated 09/12/22 @ 18:41 by Jasmin Padron MD) Narrative: 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 The 1st in 2011, he is remarried and lives independently with her. He smoked less than a pack of cigarettes per day for 10 years and quit in his 30s. He drinks 1 bottle of beer per night, never really any more than that. Denies recreational drugs. Wishes to be DNR. Smoking Status: Former smoker What tobacco products do you use: cigarettes Smoking quit date/years: >15 years ago Do you use any of these nicotine containing products: None Second hand tobacco smoke exposure: No How often do you have a drink containing alcohol: 4 or more times a week Alcohol type: beer How many standard drinks containing alcohol do you have on a typical day: 1 or 2 How often do you have six or more drinks on one occasion: Never AUDIT-C Alcohol total score: 4 Non-prescribed substance use: denies use Caffeine: Yes (coffee, 2 cups/day) service: Yes Exam Const: Vital Signs, click to edit/add: Vital Signs - 24 hr 06/17/24 17:46 06/17/24 17:47 06/17/24 18:00 Temperature 98 F Pulse Rate 62 64 Pulse Rate [Pulse Oximeter] 67 Respiratory Rate 16 Blood Pressure Blood Pressure [Ri ght Upper Arm] 149/77 H Pulse Oximetry 97 98 97 Oxygen Delivery Me thod Room Air 06/17/24 18:16 06/17/24 18:52 06/17/24 19:00 Temperature Pulse Rate 61 82 Pulse Rate [Pulse Oximeter] Respiratory Rate Blood Pressure Blood Pressure [Ri ght Upper Arm] Pulse Oximetry 97 98 91 Oxygen Delivery Me thod 06/17/24 19:34 06/17/24 20:30 06/17/24 20:39 Temperature Pulse Rate 94 62 72 Pulse Rate [Pulse Oximeter] Respiratory Rate Blood Pressure 148/83 H Blood Pressure [Ri ght Upper Arm] Pulse Oximetry 95 96 95 Oxygen Delivery Me thod Course Course ED Course: EKG, read by me, shows normal sinus rhythm with a first-degree AV block. Pulse 61. Premature supraventricular complexes. A CBC shows mild anemia with hemoglobin 10.9. Chemistries are unremarkable. Calcium a little low at 8.1. Magnesium is low at 0.7. Normal LFTs. Normal troponin. Normal CRP. UA is unremarkable. Head CT, head neck CTA unremarkable. 1 g of IV potassium given while in the ED today. Patient remained asymptomatic while he was here. Vital Signs Vital signs: Initial Vital Signs Temperature 98 F 06/17/24 17:46 Temperature Source Temporal Artery Scan 06/17/24 17:46 Pulse Rate 67 06/17/24 17:46 Pulse Rhythm Irregular 06/17/24 17:46 Respiratory Rate 16 06/17/24 17:46 Blood Pressure 149/77 H 06/17/24 17:46 Blood Pressure Mean 101 06/17/24 17:46 Pulse Oximetry 97 06/17/24 17:46 Oxygen Delivery Method Room Air 06/17/24 17:46 Vital Signs Temperature 98 F 06/17/24 17:46 Pulse Rate 67 06/17/24 17:46 Respiratory Rate 16 06/17/24 17:46 Blood Pressure 149/77 H 06/17/24 17:46 Pulse Oximetry 97 06/17/24 17:46 Oxygen Delivery Method Room Air 06/17/24 17:46 Temperature 98 F 06/17/24 17:46 Pulse Rate 72 06/17/24 20:39 Respiratory Rate 16 06/17/24 17:46 Blood Pressure 148/83 H 06/17/24 20:39 Pulse Oximetry 95 06/17/24 20:39 Oxygen Delivery Method Room Air 06/17/24 17:46 Medications Administered Medications: Discontinued Medications Generic Name Dose Route Start Last Admin Trade Name Freq PRN Reason Stop Dose Admin Magnesium Sulfate/Dextrose 1 gm in 100 mls @ 100 mls/hr 06/17/24 19:50 06/17/24 20:33 Magnesium Sulf 1 G/100 [id number] IVPB 06/17/24 20:49 100 mls/hr ONCE ONE Administration Medical Decision Making MDM Narrative Medical decision making narrative: 84-year-old male with altered mental status, confusion and slurred speech briefly that has now resolved. Symptoms suspicious for TIA. Patient is already on atorvastatin and Xarelto. Patient discharged home at this time. Will follow up with primary care early next week. Lab Data Lab results reviewed: Yes I reviewed the patient's lab results Labs: Lab Results 06/17/24 06/17/24 06/17/24 Range/Units 18:32 18:32 18:32 WBC 5.73 (4.50-11.00) K/uL RBC 3.32 L (4.30-5.90) m/uL Hgb 10.9 L (13.5-17.5) gm/dL Hct 33.8 L (37.0-53.0) % MCV 102 H (80-100) fL MCH 33 (26-34) pg MCHC 32 (32-36) gm/dL RDW Coeff of Saeid 12.6 (11.5-15.5) % Plt Count 231 (140-440) K/uL Neut % (Auto) 68.2 (42.0-72.0) % Lymph % (Auto) 20.6 (20-44) % Clay % (Auto) 8.4 (0.0-11.0) % Eos % (Auto) 2.1 (0.0-7.0) % Baso % (Auto) 0.5 (0.0-3.0) % Neut # (Auto) 3.91 (1.7-7.0) K/uL Lymph # (Auto) 1.18 (0.90-2.90) K/uL Clay # (Auto) 0.50 (0.00-0.90) K/UL Eos # (Auto) 0.12 (0.00-0.50) K/uL Baso # (Auto) 0.03 (0.00-0.30) K/uL Abs Immat Gran (auto) 0.01 (0.00-0.30) K/uL Imm/Tot Granulo (auto) 0.2 % Sodium Cancelled 137 Potassium Cancelled 4.0 Chloride Cancelled Carbon Dioxide Anion Gap BUN Creatinine Estimated Creat Clear Estimated GFR Glucose Calcium Magnesium (1.5-2.6) mg/dL Total Bilirubin (0.1-1.5) mg/dL Direct Bilirubin (0.0-0.5) mg/dL AST (12-35) U/L ALT (4-50) U/L Alkaline Phosphatase (40-150) U/L Troponin I (0.01-0.04) ng/mL C-Reactive Protein Total Protein (6.0-8.3) g/dL Albumin (3.3-5.0) g/dL Urine Color (Yellow) Urine Appearance (Clear) Urine pH (5.0-8.5) Ur Specific [place] (1.000-1.030) Urine Protein (Negative) Urine Glucose (UA) (Negative) Urine Ketones (Negative) Urine Blood (Negative) Urine Nitrite (Negative) Urine Bilirubin (Negative) Urine Urobilinogen (0.2-1.0) Ur Leukocyte Esterase (Negative) Urine RBC (0-2) Urine WBC (0-5) Ur Squamous Epith Cells (None-Few) Urine Bacteria (None) 06/17/24 06/17/24 06/17/24 Range/Units 18:32 18:32 18:32 WBC (4.50-11.00) K/uL RBC (4.30-5.90) m/uL Hgb (13.5-17.5) gm/dL Hct (37.0-53.0) % MCV (80-100) fL MCH (26-34) pg MCHC (32-36) gm/dL RDW Coeff of Saeid (11.5-15.5) % Plt Count (140-440) K/uL Neut % (Auto) (42.0-72.0) % Lymph % (Auto) (20-44) % Clay % (Auto) (0.0-11.0) % Eos % (Auto) (0.0-7.0) % Baso % (Auto) (0.0-3.0) % Neut # (Auto) (1.7-7.0) K/uL Lymph # (Auto) (0.90-2.90) K/uL Clay # (Auto) (0.00-0.90) K/UL Eos # (Auto) (0.00-0.50) K/uL Baso # (Auto) (0.00-0.30) K/uL Abs Immat Gran (auto) (0.00-0.30) K/uL Imm/Tot Granulo (auto) % Sodium Potassium Chloride 100 Carbon Dioxide Cancelled 29 Anion Gap Cancelled 8 BUN Cancelled Creatinine Estimated Creat Clear Estimated GFR Glucose Calcium Magnesium (1.5-2.6) mg/dL Total Bilirubin (0.1-1.5) mg/dL Direct Bilirubin (0.0-0.5) mg/dL AST (12-35) U/L ALT (4-50) U/L Alkaline Phosphatase (40-150) U/L Troponin I (0.01-0.04) ng/mL C-Reactive Protein Total Protein (6.0-8.3) g/dL Albumin (3.3-5.0) g/dL Urine Color (Yellow) Urine Appearance (Clear) Urine pH (5.0-8.5) Ur Specific [place] (1.000-1.030) Urine Protein (Negative) Urine Glucose (UA) (Negative) Urine Ketones (Negative) Urine Blood (Negative) Urine Nitrite (Negative) Urine Bilirubin (Negative) Urine Urobilinogen (0.2-1.0) Ur Leukocyte Esterase (Negative) Urine RBC (0-2) Urine WBC (0-5) Ur Squamous Epith Cells (None-Few) Urine Bacteria (None) 06/17/24 06/17/24 06/17/24 Range/Units 18:32 18:32 18:32 WBC (4.50-11.00) K/uL RBC (4.30-5.90) m/uL Hgb (13.5-17.5) gm/dL Hct (37.0-53.0) % MCV (80-100) fL MCH (26-34) pg MCHC (32-36) gm/dL RDW Coeff of Saeid (11.5-15.5) % Plt Count (140-440) K/uL Neut % (Auto) (42.0-72.0) % Lymph % (Auto) (20-44) % Clay % (Auto) (0.0-11.0) % Eos % (Auto) (0.0-7.0) % Baso % (Auto) (0.0-3.0) % Neut # (Auto) (1.7-7.0) K/uL Lymph # (Auto) (0.90-2.90) K/uL Clay # (Auto) (0.00-0.90) K/UL Eos # (Auto) (0.00-0.50) K/uL Baso # (Auto) (0.00-0.30) K/uL Abs Immat Gran (auto) (0.00-0.30) K/uL Imm/Tot Granulo (auto) % Sodium Potassium Chloride Carbon Dioxide Anion Gap BUN 24 Creatinine Cancelled 0.9 Estimated Creat Clear Cancelled 47.85 Estimated GFR Cancelled Glucose Calcium Magnesium (1.5-2.6) mg/dL Total Bilirubin (0.1-1.5) mg/dL Direct Bilirubin (0.0-0.5) mg/dL AST (12-35) U/L ALT (4-50) U/L Alkaline Phosphatase (40-150) U/L Troponin I (0.01-0.04) ng/mL C-Reactive Protein Total Protein (6.0-8.3) g/dL Albumin (3.3-5.0) g/dL Urine Color (Yellow) Urine Appearance (Clear) Urine pH (5.0-8.5) Ur Specific [place] (1.000-1.030) Urine Protein (Negative) Urine Glucose (UA) (Negative) Urine Ketones (Negative) Urine Blood (Negative) Urine Nitrite (Negative) Urine Bilirubin (Negative) Urine Urobilinogen (0.2-1.0) Ur Leukocyte Esterase (Negative) Urine RBC (0-2) Urine WBC (0-5) Ur Squamous Epith Cells (None-Few) Urine Bacteria (None) 06/17/24 06/17/24 06/17/24 Range/Units 18:32 18:32 18:32 WBC (4.50-11.00) K/uL RBC (4.30-5.90) m/uL Hgb (13.5-17.5) gm/dL Hct (37.0-53.0) % MCV (80-100) fL MCH (26-34) pg MCHC (32-36) gm/dL RDW Coeff of Saeid (11.5-15.5) % Plt Count (140-440) K/uL Neut % (Auto) (42.0-72.0) % Lymph % (Auto) (20-44) % Clay % (Auto) (0.0-11.0) % Eos % (Auto) (0.0-7.0) % Baso % (Auto) (0.0-3.0) % Neut # (Auto) (1.7-7.0) K/uL Lymph # (Auto) (0.90-2.90) K/uL Clay # (Auto) (0.00-0.90) K/UL Eos # (Auto) (0.00-0.50) K/uL Baso # (Auto) (0.00-0.30) K/uL Abs Immat Gran (auto) (0.00-0.30) K/uL Imm/Tot Granulo (auto) % Sodium Potassium Chloride Carbon Dioxide Anion Gap BUN Creatinine Estimated Creat Clear Estimated GFR 83 Glucose Cancelled 119 H Calcium Cancelled 8.1 L Magnesium 0.7 L* (1.5-2.6) mg/dL Total Bilirubin 0.5 (0.1-1.5) mg/dL Direct Bilirubin 0.2 (0.0-0.5) mg/dL AST 20 (12-35) U/L ALT 13 (4-50) U/L Alkaline Phosphatase 76 (40-150) U/L Troponin I 0.01 (0.01-0.04) ng/mL C-Reactive Protein Cancelled Total Protein (6.0-8.3) g/dL Albumin (3.3-5.0) g/dL Urine Color (Yellow) Urine Appearance (Clear) Urine pH (5.0-8.5) Ur Specific [place] (1.000-1.030) Urine Protein (Negative) Urine Glucose (UA) (Negative) Urine Ketones (Negative) Urine Blood (Negative) Urine Nitrite (Negative) Urine Bilirubin (Negative) Urine Urobilinogen (0.2-1.0) Ur Leukocyte Esterase (Negative) Urine RBC (0-2) Urine WBC (0-5) Ur Squamous Epith Cells (None-Few) Urine Bacteria (None) 06/17/24 06/17/24 Range/Units 18:32 Unknown WBC (4.50-11.00) K/uL RBC (4.30-5.90) m/uL Hgb (13.5-17.5) gm/dL Hct (37.0-53.0) % MCV (80-100) fL MCH (26-34) pg MCHC (32-36) gm/dL RDW Coeff of Saeid (11.5-15.5) % Plt Count (140-440) K/uL Neut % (Auto) (42.0-72.0) % Lymph % (Auto) (20-44) % Clay % (Auto) (0.0-11.0) % Eos % (Auto) (0.0-7.0) % Baso % (Auto) (0.0-3.0) % Neut # (Auto) (1.7-7.0) K/uL Lymph # (Auto) (0.90-2.90) K/uL Clay # (Auto) (0.00-0.90) K/UL Eos # (Auto) (0.00-0.50) K/uL Baso # (Auto) (0.00-0.30) K/uL Abs Immat Gran (auto) (0.00-0.30) K/uL Imm/Tot Granulo (auto) % Sodium Potassium Chloride Carbon Dioxide Anion Gap BUN Creatinine Estimated Creat Clear Estimated GFR Glucose Calcium Magnesium (1.5-2.6) mg/dL Total Bilirubin (0.1-1.5) mg/dL Direct Bilirubin (0.0-0.5) mg/dL AST (12-35) U/L ALT (4-50) U/L Alkaline Phosphatase (40-150) U/L Troponin I (0.01-0.04) ng/mL C-Reactive Protein 0.6 Total Protein 6.7 (6.0-8.3) g/dL Albumin 4.2 (3.3-5.0) g/dL Urine Color Yellow (Yellow) Urine Appearance Clear (Clear) Urine pH 7.0 (5.0-8.5) Ur Specific [place] 1.015 (1.000-1.030) Urine Protein Trace A (Negative) Urine Glucose (UA) Negative (Negative) Urine Ketones Negative (Negative) Urine Blood Negative (Negative) Urine Nitrite Negative (Negative) Urine Bilirubin Negative (Negative) Urine Urobilinogen 0.2 (0.2-1.0) Ur Leukocyte Esterase Negative (Negative) Urine RBC 0-2 (0-2) Urine WBC 0-2 (0-5) Ur Squamous Epith Cells Few (None-Few) Urine Bacteria None (None) Imaging Data CT scan - head: Attestation: I have reviewed the pertinent imaging results. Radiologist's impression: Noncontrast CT images of the brain. COMPARISON: None. FINDINGS: Gszx-vs-[id number] diffuse cerebral volume loss. No mass effect or midline shift. [place]-white differentiation is maintained. No acute intracranial hemorrhage or pathologic extra-axial fluid collection. Suggested [id number] chronic microvascular ischemic changes. Intracranial atherosclerotic calcifications. Globes are symmetric. Calvarium is intact. Minimal ethmoid sinus mucosal thickening. Mastoid air cells are clear. IMPRESSION: No acute intracranial hemorrhage or mass effect. CTA head neck: Attestation: I have reviewed the pertinent imaging results. Radiologist's impression: CT angiography of the head and neck following intravenous contrast. COMPARISON: None. FINDINGS: CTA neck: The innominate and subclavian arteries are widely patent. The common carotid arteries are widely patent. Mild (less than 50 percent) stenosis of the proximal cervical internal carotid arteries. The right vertebral artery is dominant. The vertebral arteries are widely patent. No concerning opacities in the visualized lungs. CTA head: The internal carotid, middle cerebral, and anterior cerebral arteries are widely patent. Atherosclerotic calcifications in the cavernous internal carotid arteries. The vertebral, basilar, and posterior cerebral arteries are widely patent. No intracranial aneurysm or high-flow vascular malformation. IMPRESSION: 1. No proximal large vessel occlusion. 2. Mild (less than 50 percent) stenosis of the proximal cervical internal carotid arteries. ECG Data Attestation: I personally reviewed and interpreted this ECG as follows: Discharge Plan Discharge Clinical Impression: TIA (transient ischemic attack), Altered mental status Additional Instructions: Follow-up with your primary care provider at the end of this week or early next week. We will send you home with your CT scan results and lab work so you can share these with your doctor. Prescriptions: No Action cholecalciferol (vitamin D3) 25 mcg (1,000 unit) tablet 1,000 unit PO HS atorvastatin 40 mg tablet 40 mg PO HS multivitamin Tablet 1 tab PO QAM Fish Oil 100-160-1,000 mg capsule 1 cap PO DAILY omeprazole 20 mg capsule,delayed release(DR/EC) 20 mg PO DAILY ascorbic acid (vitamin C) 1,000 mg tablet 1 g PO DAILY amlodipine 5 mg tablet 5 mg PO DAILY Patient Comments: TAKE 1 TABLET BY MOUTH EVERY DAY metoprolol tartrate 25 mg tablet 25 mg PO BID Patient Comments: TAKE 1 TABLET BY MOUTH TWO TIMES DAILY. potassium chloride 10 mEq tablet extended release 10 meq PO DAILY Xarelto 20 mg tablet 20 mg PO QPM metformin 1,000 mg tablet 1,000 mg PO BIDWM Patient Comments: TAKE 1 TABLET (1,000 MG) BY MOUTH TWO TIMES DAILY WITH MEALS. hydrochlorothiazide 25 mg tablet 25 mg PO DAILY Patient Comments: TAKE 1 TABLET BY MOUTH EVERY DAY tamsulosin 0.4 mg capsule 0.8 mg PO DAILY sennosides [Senna Lax] 8.6 mg Tablet 17.2 mg PO BID PRN (Reason: constipation) Qty: 100 0RF acetaminophen 500 mg capsule 500 - 1,000 mg PO Q6H MDD 4000mg per day PRN (Reason: pain) Qty: 100 0RF cyanocobalamin (vitamin B-12) 1,000 mcg tablet 1,000 mcg PO DAILY Patient Comments: TAKE 1 TABLET (1,000 MCG) BY MOUTH ONCE DAILY. oxycodone 5 mg Tablet 2.5 - 5 mg PO Q4-6H MDD 6 tabs per day PRN (Reason: Pain) Qty: 42 0RF Rx Instructions: Minimize. Discontinue as soon as possible Follow Up/Referrals: Aftab Hills MD [Primary Care Provider] - Stand Alone Forms: MyHealth Info Instructions
[2024-06-17 18:44] LABS: Basophils Absolute Auto 0.03 K/uL (0.00-0.30); Basophils Percent Auto 0.5 % (0.0-3.0); Eosinophils Absolute Auto 0.12 K/uL (0.00-0.50); Eosinophils Percent Auto 2.1 % (0.0-7.0); Hematocrit 33.8 % (37.0-53.0); Hemoglobin* 10.9 gm/dL (13.5-17.5); Immature Granulocytes Abs Auto 0.01 K/uL (0.00-0.30); Immature Granulocytes Pct Auto 0.2 %; Lymphocytes Absolute Auto 1.18 K/uL (0.90-2.90); Lymphocytes Percent Auto 20.6 % (20-44); Mean Corpuscular HGB Conc 32 gm/dL (32-36); Mean Corpuscular Hemoglobin 33 pg (26-34); Mean Corpuscular Volume 102 fL (80-100); Monocytes Percent Auto 8.4 % (0.0-11.0); Neutrophils Absolute Auto 3.91 K/uL (1.7-7.0); Neutrophils Percent Auto 68.2 % (42.0-72.0); Platelet Count* 231 K/uL (140-440); RDW Coefficient of Variation % 12.6 % (11.5-15.5); Red Blood Count 3.32 m/uL (4.30-5.90); White Blood Count* 5.73 K/uL (4.50-11.00)
[2024-06-17 18:45] LABS: Slide Review Reflex No
[2024-06-17 19:00] LABS: Appearance Urine Clear (Clear); Bilirubin Urine Negative (Negative); Blood Urine Negative (Negative); Color Urine Yellow (Yellow); Glucose Urine Negative (Negative); Ketones Urine Negative (Negative); Leukocyte Esterase Urine Negative (Negative); Nitrite Urine Negative (Negative); Protein Urine Trace (Negative); Specific Gravity Urine 1.015 (1.000-1.030); Urobilinogen Urine 0.2 (0.2-1.0)
[2024-06-17 19:01] LABS: RBC Urine 0-2 (0-2); Squamous Epithelial Cell Urine Few (None-Few); WBC Urine 0-2 (0-5)
[2024-06-17 19:27] LABS: Albumin* 4.2 g/dL (3.3-5.0); Chloride* 100 mmol/L (96-114); Sodium* 137 mmol/L (135-149)
[2024-06-17 19:29] LABS: Creatinine* 0.9 mg/dL (0.5-1.5); Est. Creatinine Clearance* 47.85; Estimated Glomerular Filt Rate 83 ml/min
[2024-06-17 19:30] LABS: Alanine Aminotransferase* 13 U/L (4-50); Alkaline Phosphatase* 76 U/L (40-150); Anion Gap 8 mEq/L (7-15); Aspartate Amino Transferase* 20 U/L (12-35); Bilirubin Direct* 0.2 mg/dL (0.0-0.5); Bilirubin Total* 0.5 mg/dL (0.1-1.5); Blood Urea Nitrogen* 24 mg/dL (7-30); Calcium* 8.1 mg/dL (8.4-10.6); Carbon Dioxide* 29 mmol/L (20-32); Glucose* 119 mg/dL (60-115); Total Protein* 6.7 g/dL (6.0-8.3)
[2024-06-17 19:33] LABS: C Reactive Protein* 0.6 mg/dL (0.5-1.0)
[2024-06-17 19:42] LABS: Troponin I* 0.01 ng/mL (0.01-0.04)
[2024-06-17 19:44] LABS: Magnesium* 0.7 mg/dL (1.5-2.6)
== END 2024-06-17 21:50 | disposition home or self-care (01) ==
PROVIDERS: Emergency Provider Family Medicine; PCP Family Medicine
DX: G45.9 Transient cerebral ischemic attack, unspecified (principal); R41.82 Altered mental status, unspecified
CPT/HCPCS: 36415; 70450; 70496; 70498; 80048; 80076; 81001; 83735; 84484; 85025; 86140; 87086; 93005; 94761; 96365; 99284; 99285; J3475; Q9967